=== PATIENT | male | born 1950 | race Caucasian/White ===

== ENCOUNTER 2018-09-22 09:25 | Emergency (ER) | payer MEDICARE ==
[~2018-09-22] VITALS: Ht 172.7 cm; Wt 80.0 kg
[~2018-09-22 09:25] MED LIST: AMOXICILLIN500 MG PO; BAYER ASA325 MG PO; HYDROCHLORO25 MG/TAB PO; LORTAB 5 OR; MECLIZINE25 MG PO; NAPROSYN500 MG PO; NO HOME MEDS; TESTIM1 % TD; ULTRAM50 M1 PO; ZOFRAN ODT8 MG PO
[2018-09-22] MEDS ORDERED: AMOXICILLIN500 MG PO (09:55)
[2018-09-22 10:12] LABS: HEMATOCRIT 43.5 % (39.0-50.0); IMMATURE GRANULOCYTES 0.7 % (0.0-5.0); MEAN CORPUSCULAR HGB 27.9 pG CALC (26.0-32.0); MEAN CORPUSCULAR HGB CONC 34.5 g/L CALC (32.0-36.0); NEUT# 5.21 thou/uL (1.82-7.42); RED BLOOD COUNT 5.37 mill/uL (4.70-6.10); RED CELL DISTRI WIDTH 12.4 % (11.5-15.5)
[2018-09-22 10:24] LABS: GFR > 60 ML/MIN (>=60 (CALC)); GFR FOR AFR.AMER. > 60 ML/MIN (>=60 (CALC))
[2018-09-22 10:25] LABS: ANION GAP 12 (6-22 (CALC)); BUN 16 mg/dL (8-23); BUN/CREATININE RATIO 20 (12-20 (CALC)); CARBON DIOXIDE 28 mmol/l (22-30); CHLORIDE 107 mmol/l (95-108); CREATININE 0.8 mg/dL (0.7-1.3); GFR > 60 ML/MIN (>=60 (CALC)); GFR FOR AFR.AMER. > 60 ML/MIN (>=60 (CALC)); POTASSIUM 4.2 mmol/l (3.5-5.1); SODIUM 142 mmol/l (137-146)
[2018-09-22 13:14] VITALS: BP 161/69
== END 2018-09-22 13:20 | disposition home or self-care (01) ==
LOC: ED 09:25
PROVIDERS: Family Medicine
DX: G62.9 Polyneuropathy, unspecified (principal); R53.1 Weakness; R42 Dizziness and giddiness
CPT/HCPCS: Q9967

== ENCOUNTER 2019-02-20 09:51 | Emergency (ER) | payer MEDICARE ==
[~2019-02-20] VITALS: Ht 172.7 cm; Wt 85.0 kg
[2019-02-20 10:14] LABS: HEMATOCRIT 46.4 % (39.0-50.0); HEMOGLOBIN 16.4 g/dl (14.0-18.0); IMMATURE GRANULOCYTES 0.3 % (0.0-5.0); MEAN CELL VOLUME 79.9 fL CALC (80.0-100.0); MEAN CORPUSCULAR HGB 28.2 pG CALC (26.0-32.0); MEAN CORPUSCULAR HGB CONC 35.3 g/L CALC (32.0-36.0); NEUT# 4.72 thou/uL (1.82-7.42); RED BLOOD COUNT 5.81 mill/uL (4.70-6.10); RED CELL DISTRI WIDTH 12.8 % (11.5-15.5)
[2019-02-20 10:24] LABS: ALKALINE PHOSPHATASE 88 u/l (38-126); ANION GAP 16 (6-22 (CALC)); BILIRUBIN, TOTAL 0.7 mg/dL (0.0-1.4); BUN 18 mg/dL (8-23); BUN/CREATININE RATIO 17 (12-20 (CALC)); CARBON DIOXIDE 27 mmol/l (22-30); CHLORIDE 105 mmol/l (95-108); CREATININE 1.1 mg/dL (0.7-1.3); GFR > 60 ML/MIN (>=60 (CALC)); GFR FOR AFR.AMER. > 60 ML/MIN (>=60 (CALC)); LIPASE 207 u/l (23-300); POTASSIUM 3.9 mmol/l (3.5-5.1); SGOT/AST 31 u/l (19-48); SODIUM 144 mmol/l (137-146); TOTAL PROTEIN 8.4 g/dL (6.3-8.2)
[2019-02-20] MEDS ORDERED: ONDANSETRON4 MG PO (11:14)
[2019-02-20] MEDS ORDERED: TAMSULOSIN0.4 MG PO (11:14)
[2019-02-20] MEDS ORDERED: TRAMADOL HYDROC50 MG PO (11:14)
[2019-02-20 11:32] LABS: URINE BILIRUBIN - DIPSTICK NEGATIVE (NEGATIVE); URINE BLOOD DIPSTICK LARGE (NEGATIVE); URINE COLOR DK. YELLOW; URINE GLUCOSE - DIPSTICK NEGATIVE (NEGATIVE); URINE KETONE NEGATIVE (NEGATIVE); URINE LEUK ESTERASE NEGATIVE (NEGATIVE); URINE NITRITE - DIPSTICK NEGATIVE (Negative); URINE PROTEIN - DIPSTICK TRACE mg/dL (NEG-TRACE)
[2019-02-20 11:33] LABS: URINE EPITHELIAL CELLS FEW EPI/hpf (0-FEW)
[2019-02-20 11:51] VITALS: BP 216/114
== END 2019-02-20 11:51 | disposition home or self-care (01) ==
LOC: ED 09:51
PROVIDERS: Family Medicine
DX: N20.2 Calculus of kidney with calculus of ureter (principal); K66.8 Other specified disorders of peritoneum

== ENCOUNTER 2019-09-29 21:25 | Emergency (ER) | payer MEDICARE ==
[~2019-09-29 21:25] MED LIST changes: +ONDANSETRON4 MG PO; +TAMSULOSIN0.4 MG PO; +TRAMADOL HYDROC50 MG PO
[2019-09-29 22:11] LABS: URINE BILIRUBIN - DIPSTICK NEGATIVE (NEGATIVE); URINE BLOOD DIPSTICK MODERATE (NEGATIVE); URINE COLOR YELLOW; URINE GLUCOSE - DIPSTICK NEGATIVE (NEGATIVE); URINE KETONE NEGATIVE (NEGATIVE); URINE LEUK ESTERASE NEGATIVE (NEGATIVE); URINE NITRITE - DIPSTICK NEGATIVE (Negative); URINE PROTEIN - DIPSTICK 30 mg/dL (NEG-TRACE); URINE SPECIFIC GRAVITY >=1.030; URINE UROBILINOGEN - DIPSTICK 0.2 E.U./dL (0.2)
[2019-09-29 22:12] LABS: HEMATOCRIT 44.1 % (39.0-50.0); HEMOGLOBIN 15.5 g/dl (14.0-18.0); IMMATURE GRANULOCYTES 0.4 % (0.0-5.0); MEAN CELL VOLUME 80.3 fL CALC (80.0-100.0); MEAN CORPUSCULAR HGB 28.2 pG CALC (26.0-32.0); MEAN CORPUSCULAR HGB CONC 35.1 g/dL CAL (32.0-36.0); NEUT# 4.93 thou/uL (1.82-7.42); RED BLOOD COUNT 5.49 mill/uL (4.70-6.10); RED CELL DISTRI WIDTH 13.2 % (11.5-15.5)
[2019-09-29 22:24] LABS: URINE MUCUS FEW hpf (NONE-FEW); URINE SQUAMOUS EPITHELIAL CELL FEW EPI/hpf (0-FEW)
[2019-09-29 22:30] LABS: ALBUMIN 4.7 g/dL (3.2-5.0); ALKALINE PHOSPHATASE 71 u/l (38-126); AMYLASE 62 u/l (30-110); ANION GAP 13 (6-22 (CALC)); BUN 20 mg/dL (8-23); BUN/CREATININE RATIO 18 (12-20 (CALC)); CARBON DIOXIDE 27 mmol/l (22-30); CHLORIDE 107 mmol/l (95-108); CREATININE 1.1 mg/dL (0.7-1.3); GFR > 60 ML/MIN (>=60 (CALC)); GFR FOR AFR.AMER. > 60 ML/MIN (>=60 (CALC)); LIPASE 178 u/l (23-300); POTASSIUM 4.2 mmol/l (3.5-5.1); SGOT/AST 29 u/l (19-48); SODIUM 142 mmol/l (137-146); TOTAL PROTEIN 7.9 g/dL (6.3-8.2)
[2019-09-29 22:35] LABS: BILIRUBIN, TOTAL 1.1 mg/dL (0.0-1.4)
[2019-09-29 23:01] LABS: TSH, 3RD GENERATION 8.69 uIU/mL (0.47 - 4.68)
[2019-09-29] MEDS ORDERED: TRAMADOL HCL50 MG PO (23:21)
[2019-09-29 23:25] VITALS: BP 173/83
== END 2019-09-29 23:40 | disposition home or self-care (01) ==
LOC: ED 21:25
PROVIDERS: Family Medicine
DX: N21.0 Calculus in bladder (principal); R59.0 Localized enlarged lymph nodes; G62.9 Polyneuropathy, unspecified; Z87.442 Personal history of urinary calculi

== ENCOUNTER 2019-11-03 07:18 | Day surgery (SDC) | payer MEDICARE ==
[~2019-11-03] VITALS: Ht 175.3 cm; Wt 87.5 kg
[~2019-11-03 07:18] MED LIST changes: +TRAMADOL HCL50 MG PO
[2019-11-03] MEDS ORDERED: ASPIRIN81 MG PO (07:46)
[2019-11-03 12:46] VITALS: BP 167/85
== END 2019-11-03 13:19 | disposition home or self-care (01) ==
LOC: ORM 07:18
PROVIDERS: ATTEND Urology
PROC: 0VB08ZZ Excision of Prostate, Via Natural or Artificial Opening Endoscopic (ICD-10-PCS; principal; 2019-11-03)
PROC: 0TCB8ZZ Extirpation of Matter from Bladder, Via Natural or Artificial Opening Endoscopic (ICD-10-PCS; 2019-11-03)
DX: N40.1 Benign prostatic hyperplasia with lower urinary tract symptoms (principal); R39.12 Poor urinary stream; N13.8 Other obstructive and reflux uropathy; N21.0 Calculus in bladder; Z11.59 Encounter for screening for other viral diseases

== ENCOUNTER 2020-01-28 15:15 | Observation (INO) | payer MEDICARE ==
[~2020-01-28] VITALS: Ht 175.3 cm; Wt 86.2 kg
[~2020-01-28 15:15] MED LIST changes: +ASPIRIN81 MG PO
--- NOTE | 2020-01-28 16:10 | NUR ---
PT ASSESSED. CHANGED TO GOWN. MONITORS APPLIED. PT REPORTS CHEST TIGHTNESS THIS MORNING AFTER CLIMBING STAIRS. FEELING RESOLVED WITH REST. PT HAS NO CHEST PAIN AT PRESENT BUT FEELS LIKE HE CANNOT TAKE A FULL BREATH. AO X 3. SKIN PINK WARM AND DRY.
[2020-01-28 16:44] LABS: HEMATOCRIT 45.6 % (39.0-50.0); HEMOGLOBIN 15.7 g/dl (14.0-18.0); IMMATURE GRANULOCYTES 0.2 % (0.0-5.0); MEAN CORPUSCULAR HGB 27.9 pG CALC (26.0-32.0); MEAN CORPUSCULAR HGB CONC 34.4 g/dL CAL (32.0-36.0); NEUT# 4.16 thou/uL (1.82-7.42); RED BLOOD COUNT 5.63 mill/uL (4.70-6.10); RED CELL DISTRI WIDTH 13.2 % (11.5-15.5)
[2020-01-28 16:58] LABS: ALBUMIN 4.8 g/dL (3.2-5.0); ALKALINE PHOSPHATASE 85 u/l (38-126); ANION GAP 14 (6-22 (CALC)); BILIRUBIN, TOTAL 0.8 mg/dL (0.0-1.4); BUN 14 mg/dL (8-23); BUN/CREATININE RATIO 16 (12-20 (CALC)); CARBON DIOXIDE 25 mmol/l (22-30); CHLORIDE 106 mmol/l (95-108); CREATININE 0.9 mg/dL (0.7-1.3); GFR > 60 ML/MIN (>=60 (CALC)); GFR FOR AFR.AMER. > 60 ML/MIN (>=60 (CALC)); POTASSIUM 4.3 mmol/l (3.5-5.1); SGOT/AST 32 u/l (19-48); SODIUM 142 mmol/l (137-146); TOTAL PROTEIN 8.2 g/dL (6.3-8.2)
--- NOTE | 2020-01-28 17:23 | NUR ---
SBAR PRINTED TO FLOOR
--- NOTE | 2020-01-28 17:37 | NUR ---
PT RESTING ON STRETCHER. NO COMPLAINTS OF CHEST DISCOMFORT AT THIS TIME
--- NOTE | 2020-01-28 18:10 | NUR ---
PT RESTING COMFORTABLY AWAITING ADMISSION ORDERS
--- NOTE | 2020-01-28 18:16 | NUR ---
REPORT GIVEN TO [facility]
--- NOTE | 2020-01-28 18:20 | NUR ---
PT TRANSPORTED VIA STRETCHER TELEMETRY IN PLACE TO [facility]
--- NOTE | 2020-01-28 18:38 | NUR ---
REPORT RECEIVED FROM JUSTIN IN ED, PT ARRIVED ON UNIT @ 1823 TRANSPORTED VIA STRETCHER AND AMBULATED TO BED. ALERT AND ORIENTED TIMES 4, NO C/O DISCOMFORT AT THIS TIME, TELE MONITOR IN PLACE, ORIENTED TO ROOM AND CALL GLASS AND SETTLED IN ROOM.
--- NOTE | 2020-01-28 19:20 | NUR ---
REPORT FROM [facility]. PT NOTED SITTING UP AT SIDE OF BED. ALERT AND ORIENTED X4. NO APPARENT DISTRESS NOTED. RESPIRATIONS EVEN AND UNLABORED. PT DENIES ANY PAIN OR SOB AT THIS TIME. FISHER EEL IN PLACE. IV SITE APPEARS HEALTHY. DISCUSSED POC. PT VERBALIZED UNDERSTANDING. NO CURRENT WANTS OR NEEDS. CALL LIGHT WITHIN REACH. WILL CONTINUE TO MONITOR.
[2020-01-28 19:24] VITALS: BP 171/84
[2020-01-28] MEDS ORDERED: ASPIRIN 81 LOW81 MG PO (19:35)
--- NOTE | 2020-01-28 19:43 | NUR ---
PT REQUEST SHOWER. LINENS PROVIDED AND IV SITE SECURED. WILL CONTINUE TO MONITOR.
--- NOTE | 2020-01-28 21:00 | NUR ---
PT OUT OF SHOWER. METALLURGICAL TESTER REAPPLIED. MEDICATED ORDERED. ASSESSMENT COMPLETED. NO APPARENT DISTRESS NOTED. CALL LIGHT WITHIN REACH. WILL CONTINUE TO MONITOR.
[2020-01-29 00:10] VITALS: BP 128/69
--- NOTE | 2020-01-29 01:18 | NUR ---
PT RESTING IN BED WITH EYES CLOSED. NO APPARENT DISTRESS NOTED. CALL LIGHT WITHIN REACH. WILL CONTINUE TO MONITOR.
[2020-01-29 04:59] VITALS: BP 135/74
--- NOTE | 2020-01-29 04:59 | NUR ---
PT RESTING IN BED. NO APPARENT DISTRESS NOTED. PT WAKES EASILY. DENIES ANY PAIN OR DISCOMFORT. CALL LIGHT WITHIN REACH. WILL CONTINUE TO MONITOR.
[2020-01-29 06:44] LABS: CHOLESTEROL HDL RATIO 8.3 (<4.4 (CALC)); MAGNESIUM 1.8 mg/dL (1.6-2.3)
--- NOTE | 2020-01-29 06:44 | NUR ---
PT APPROACHED NURSES DRESSED IN CLOTHES FROM HOME. PT STATES HE NEEDS TO LEAVE THAT HE HAS TO BE AT WORK AT 8. DISCUSSED LEAVING AMA AND MEDICAL RISK. PT SIGNED AMA PAPER. IV DISCONTINUED. CUTTER FINISHER PHYSICIAN AND PACKAGING ASSEMBLER NOTIFIED AT THIS TIME.
== END 2020-01-29 06:50 | disposition left against medical advice (07) ==
LOC: ED 15:15 → ED-I 17:13 → ED 17:26 → MS2 17:27
PROVIDERS: Family Medicine; Nurse Practitioner; ADMIT Internal Medicine; ATTEND Internal Medicine
DX: R07.9 Chest pain, unspecified (principal); R20.0 Anesthesia of skin; R53.1 Weakness; R06.02 Shortness of breath; R05 Cough; Z20.828 Contact with and (suspected) exposure to other viral communicable diseases
CPT/HCPCS: G0378

== ENCOUNTER 2020-03-10 12:20 | Emergency (ER) | payer MEDICARE ==
[~2020-03-10] VITALS: Ht 175.3 cm; Wt 87.7 kg
[~2020-03-10 12:20] MED LIST changes: +ASPIRIN 81 LOW81 MG PO
[2020-03-10 12:36] LABS: HEMATOCRIT 46.8 % (39.0-50.0); IMMATURE GRANULOCYTES 0.2 % (0.0-5.0); MEAN CELL VOLUME 81.1 fL CALC (80.0-100.0); MEAN CORPUSCULAR HGB 27.7 pG CALC (26.0-32.0); MEAN CORPUSCULAR HGB CONC 34.2 g/dL CAL (32.0-36.0); NEUT# 7.52 thou/uL (1.82-7.42); RED BLOOD COUNT 5.77 mill/uL (4.70-6.10); RED CELL DISTRI WIDTH 13.2 % (11.5-15.5)
[2020-03-10 13:04] LABS: ALBUMIN 4.8 g/dL (3.2-5.0); ALKALINE PHOSPHATASE 101 u/l (38-126); AMYLASE 70 u/l (30-110); ANION GAP 17 (6-22 (CALC)); BUN 16 mg/dL (8-23); BUN/CREATININE RATIO 15 (12-20 (CALC)); CARBON DIOXIDE 26 mmol/l (22-30); CHLORIDE 106 mmol/l (95-108); CREATININE 1.1 mg/dL (0.7-1.3); GFR > 60 ML/MIN (>=60 (CALC)); GFR FOR AFR.AMER. > 60 ML/MIN (>=60 (CALC)); LIPASE 158 u/l (23-300); POTASSIUM 3.8 mmol/l (3.5-5.1); SGOT/AST 44 u/l (19-48); SODIUM 145 mmol/l (137-146); TOTAL PROTEIN 8.4 g/dL (6.3-8.2)
[2020-03-10 13:05] LABS: ACT PARTIAL THROMBO TIME 24.2 SECONDS (20.0-32.5); INTERNATIONAL NORMALIZED RATIO 1.2 RATIO (0.7-1.3); PROTHROMBIN TIME 11.5 SECONDS (9.0-12.5)
[2020-03-10 13:10] LABS: BILIRUBIN, TOTAL 1.6 mg/dL (0.0-1.4)
[2020-03-10 13:13] VITALS: BP 184/103
== END 2020-03-10 13:22 | disposition short-term general hospital (02) ==
LOC: ED 12:20
DX: I21.3 ST elevation (STEMI) myocardial infarction of unspecified site (principal)
CPT/HCPCS: J1644

== ENCOUNTER 2020-09-28 20:47 | Emergency (ER) | payer MEDICARE ==
[~2020-09-28] VITALS: Ht 30.5 cm; Wt 87.7 kg
[2020-09-28 21:42] LABS: IMMATURE GRANULOCYTES 0.3 % (0.0-5.0); MEAN CELL VOLUME 83.5 fL CALC (80.0-100.0); MEAN CORPUSCULAR HGB 29.4 pG CALC (26.0-32.0); MEAN CORPUSCULAR HGB CONC 35.2 g/dL CAL (32.0-36.0); NEUT# 4.26 thou/uL (1.82-7.42); RED BLOOD COUNT 4.49 mill/uL (4.70-6.10); RED CELL DISTRI WIDTH 13.2 % (11.5-15.5)
[2020-09-28 21:43] LABS: HEMATOCRIT 37.5 % (39.0-50.0); HEMOGLOBIN 13.2 g/dl (14.0-18.0)
[2020-09-28 21:46] LABS: URINE BILIRUBIN - DIPSTICK NEGATIVE (NEGATIVE); URINE BLOOD DIPSTICK LARGE (NEGATIVE); URINE COLOR BROWN; URINE GLUCOSE - DIPSTICK NEGATIVE (NEGATIVE); URINE KETONE NEGATIVE (NEGATIVE); URINE LEUK ESTERASE NEGATIVE (NEGATIVE); URINE PROTEIN - DIPSTICK 100 mg/dL (NEG-TRACE); URINE SPECIFIC GRAVITY >=1.030; URINE UROBILINOGEN - DIPSTICK 0.2 E.U./dL (0.2)
[2020-09-28] MEDS ORDERED: BRILINTA90 MG PO (21:46)
[2020-09-28] MEDS ORDERED: LISINOPRIL10 MG PO (21:48)
[2020-09-28] MEDS ORDERED: SPIRONOLACT25 MG PO (21:49)
[2020-09-28] MEDS ORDERED: METOPROLOL100 M1 PO (21:50)
[2020-09-28 21:51] LABS: URINE NITRITE - DIPSTICK NEGATIVE (Negative)
[2020-09-28] MEDS ORDERED: ATORVASTATIN CA80 MG PO (21:51)
[2020-09-28 21:52] LABS: URINE BACTERIA MANY hpf; URINE RBC 50-100 RBC/hpf (0-5); URINE SQUAMOUS EPITHELIAL CELL FEW EPI/hpf (0-FEW)
[2020-09-28 21:55] LABS: ALBUMIN 4.2 g/dL (3.2-5.0); ALKALINE PHOSPHATASE 70 u/l (38-126); ANION GAP 13 (6-22 (CALC)); BUN 24 mg/dL (8-23); BUN/CREATININE RATIO 20 (12-20 (CALC)); CARBON DIOXIDE 25 mmol/l (22-30); CHLORIDE 104 mmol/l (95-108); CREATININE 1.2 mg/dL (0.7-1.3); GFR 60 ML/MIN (>=60 (CALC)); GFR FOR AFR.AMER. > 60 ML/MIN (>=60 (CALC)); POTASSIUM 4.3 mmol/l (3.5-5.1); SGOT/AST 32 u/l (19-48); SODIUM 138 mmol/l (137-146); TOTAL PROTEIN 7.8 g/dL (6.3-8.2)
[2020-09-28 22:03] LABS: BILIRUBIN, TOTAL 0.6 mg/dL (0.0-1.4)
[2020-09-28 22:04] LABS: ACT PARTIAL THROMBO TIME 22.5 SECONDS (20.0-32.5); INTERNATIONAL NORMALIZED RATIO 1.1 RATIO (0.7-1.3); PROTHROMBIN TIME 11.1 SECONDS (9.0-12.5)
[2020-09-28] MEDS ORDERED: BACTRIM DS1 TAB PO (23:10)
[2020-09-28 23:26] VITALS: BP 130/65
== END 2020-09-28 23:36 | disposition home or self-care (01) ==
LOC: ED 20:47
PROVIDERS: Family Medicine
DX: R31.9 Hematuria, unspecified (principal); R59.0 Localized enlarged lymph nodes; Z86.73 Personal history of transient ischemic attack (TIA), and cerebral infarction without residual deficits; Z87.442 Personal history of urinary calculi
CPT/HCPCS: Q9967

== ENCOUNTER 2020-11-21 11:23 | Emergency (ER) | payer MEDICARE ==
[~2020-11-21] VITALS: Ht 175.3 cm; Wt 92.0 kg
[~2020-11-21 11:23] MED LIST changes: +ATORVASTATIN CA80 MG PO; +BACTRIM DS1 TAB PO; +BRILINTA90 MG PO; +LISINOPRIL10 MG PO; +METOPROLOL100 M1 PO; +SPIRONOLACT25 MG PO
[2020-11-21 12:31] LABS: HEMATOCRIT 40.9 % (39.0-50.0); HEMOGLOBIN 14.5 g/dl (14.0-18.0); IMMATURE GRANULOCYTES 0.3 % (0.0-5.0); MEAN CORPUSCULAR HGB 29.4 pG CALC (26.0-32.0); MEAN CORPUSCULAR HGB CONC 35.5 g/dL CAL (32.0-36.0); NEUT# 4.85 thou/uL (1.82-7.42); RED BLOOD COUNT 4.93 mill/uL (4.70-6.10); RED CELL DISTRI WIDTH 12.7 % (11.5-15.5)
[2020-11-21 12:50] LABS: ALBUMIN 4.4 g/dL (3.2-5.0); ALKALINE PHOSPHATASE 69 u/l (38-126); ANION GAP 16 (6-22 (CALC)); BILIRUBIN, TOTAL 0.7 mg/dL (0.0-1.4); BUN 25 mg/dL (8-23); BUN/CREATININE RATIO 20 (12-20 (CALC)); CHLORIDE 109 mmol/l (95-108); CREATININE 1.2 mg/dL (0.7-1.3); GFR 60 ML/MIN (>=60 (CALC)); GFR FOR AFR.AMER. > 60 ML/MIN (>=60 (CALC)); POTASSIUM 4.4 mmol/l (3.5-5.1); SGOT/AST 33 u/l (19-48); SODIUM 140 mmol/l (137-146); TOTAL PROTEIN 8.2 g/dL (6.3-8.2)
[2020-11-21 12:56] LABS: CARBON DIOXIDE 19 mmol/l (22-30)
[2020-11-21 15:23] LABS: URINE BILIRUBIN - DIPSTICK NEGATIVE (NEGATIVE); URINE BLOOD DIPSTICK LARGE (NEGATIVE); URINE GLUCOSE - DIPSTICK NEGATIVE (NEGATIVE); URINE KETONE NEGATIVE (NEGATIVE); URINE LEUK ESTERASE NEGATIVE (NEGATIVE); URINE PROTEIN - DIPSTICK 30 mg/dL (NEG-TRACE); URINE SPECIFIC GRAVITY >=1.030; URINE UROBILINOGEN - DIPSTICK 0.2 E.U./dL (0.2)
[2020-11-21 15:28] LABS: URINE COLOR AMBER; URINE NITRITE - DIPSTICK NEGATIVE (Negative)
[2020-11-21 15:35] LABS: URINE AMORPH SEDIMENT FEW hpf (NONE-FER); URINE MUCUS FEW hpf (NONE-FEW); URINE RBC 50-100 RBC/hpf (0-5)
[2020-11-21 16:29] VITALS: BP 149/74
[2020-11-21] MEDS ORDERED: TORADOL PO (16:31)
[2020-11-21] MEDS ORDERED: ZOFRAN4 MG/TAB PO (16:31)
[2020-11-21] MEDS ORDERED: TAMSULOSIN0.4 MG PO (16:31)
== END 2020-11-21 16:34 | disposition home or self-care (01) ==
LOC: ED 11:23
PROVIDERS: Emergency Medicine
DX: N20.0 Calculus of kidney (principal); I25.2 Old myocardial infarction; Z87.442 Personal history of urinary calculi; Z86.73 Personal history of transient ischemic attack (TIA), and cerebral infarction without residual deficits; Z95.5 Presence of coronary angioplasty implant and graft

== ENCOUNTER 2020-12-07 11:25 | Observation (INO) | payer MEDICARE ==
[~2020-12-07] VITALS: Ht 175.3 cm; Wt 92.3 kg
[~2020-12-07 11:25] MED LIST changes: +TORADOL PO; +ZOFRAN4 MG/TAB PO
[2020-12-07 12:36] LABS: HEMATOCRIT 38.9 % (39.0-50.0); HEMOGLOBIN 12.9 g/dl (14.0-18.0); MEAN CORPUSCULAR HGB 29.3 pG CALC (26.0-32.0); MEAN CORPUSCULAR HGB CONC 33.2 g/dL CAL (32.0-36.0); NEUT# 4.01 thou/uL (1.82-7.42); RED BLOOD COUNT 4.41 mill/uL (4.70-6.10)
[2020-12-07 12:54] LABS: ALBUMIN 4.4 g/dL (3.2-5.0); ALKALINE PHOSPHATASE 75 u/l (38-126); ANION GAP 18 (6-22 (CALC)); BILIRUBIN, TOTAL 0.9 mg/dL (0.0-1.4); BUN 35 mg/dL (8-23); BUN/CREATININE RATIO 18 (12-20 (CALC)); CARBON DIOXIDE 19 mmol/l (22-30); CHLORIDE 108 mmol/l (95-108); D-DIMER 1.03 mg/L (0.19-0.60); GFR 33 ML/MIN (>=60 (CALC)); GFR FOR AFR.AMER. 40 ML/MIN (>=60 (CALC)); LIPASE 309 u/l (23-300); POTASSIUM 5.1 mmol/l (3.5-5.1); SGOT/AST 50 u/l (19-48); SODIUM 139 mmol/l (137-146); TOTAL PROTEIN 8.3 g/dL (6.3-8.2)
[2020-12-07 12:58] LABS: ACT PARTIAL THROMBO TIME 25.3 SECONDS (20.0-32.5); INTERNATIONAL NORMALIZED RATIO 1.1 RATIO (0.7-1.3); PROTHROMBIN TIME 11.5 SECONDS (9.0-12.5)
[2020-12-07 13:00] LABS: MEAN CELL VOLUME 88.2 fL CALC (80.0-100.0)
[2020-12-07 13:03] LABS: URINE BLOOD DIPSTICK LARGE (NEGATIVE); URINE GLUCOSE - DIPSTICK NEGATIVE (NEGATIVE); URINE KETONE NEGATIVE (NEGATIVE); URINE LEUK ESTERASE NEGATIVE (NEGATIVE); URINE PH 5.5 (4.5-8.0); URINE PROTEIN - DIPSTICK 30 mg/dL (NEG-TRACE); URINE SPECIFIC GRAVITY >=1.030; URINE UROBILINOGEN - DIPSTICK 0.2 E.U./dL (0.2)
[2020-12-07 13:05] LABS: URINE BILIRUBIN - DIPSTICK SMALL (NEGATIVE)
[2020-12-07 13:06] LABS: URINE COLOR DK. YELLOW; URINE NITRITE - DIPSTICK NEGATIVE (Negative)
[2020-12-07 13:08] LABS: URINE HYALINE CAST FEW lpf (NONE-RARE); URINE SQUAMOUS EPITHELIAL CELL RARE EPI/hpf (0-FEW)
[2020-12-07 19:11] VITALS: BP 104/61
[2020-12-07 23:46] VITALS: BP 99/51
[2020-12-08 04:18] VITALS: BP 118/58
[2020-12-08 05:49] LABS: HEMATOCRIT 36.3 % (39.0-50.0); HEMOGLOBIN 12.1 g/dl (14.0-18.0); IMMATURE GRANULOCYTES 0.3 % (0.0-5.0); MEAN CORPUSCULAR HGB 29.7 pG CALC (26.0-32.0); MEAN CORPUSCULAR HGB CONC 33.3 g/dL CAL (32.0-36.0); NEUT# 2.84 thou/uL (1.82-7.42); RED BLOOD COUNT 4.08 mill/uL (4.70-6.10); RED CELL DISTRI WIDTH 12.9 % (11.5-15.5)
[2020-12-08 06:03] LABS: C-REACTIVE PROTEIN 1.4 mg/dL (0-0.9)
[2020-12-08 06:07] LABS: ALBUMIN 3.8 g/dL (3.2-5.0); CREATININE 1.6 mg/dL (0.7-1.3); POTASSIUM 4.9 mmol/l (3.5-5.1); TOTAL PROTEIN 6.9 g/dL (6.3-8.2)
[2020-12-08 06:10] LABS: BILIRUBIN, TOTAL 0.4 mg/dL (0.0-1.4)
[2020-12-08 07:47] VITALS: BP 116/61
[2020-12-08 10:30] VITALS: BP 114/57
[2020-12-08] MEDS ORDERED: DEXAMETHASON6 MG PO (12:52)
[2020-12-08] MEDS ORDERED: AZITHROMYCIN500 MG PO (12:53)
== END 2020-12-08 14:45 | disposition home or self-care (01) ==
LOC: ED 11:25 → ED-I 14:43 → ED 15:00 → MS2 15:01
PROVIDERS: ADMIT Internal Medicine; ATTEND Internal Medicine
DX: U07.1 COVID-19 (principal); J12.82 Pneumonia due to coronavirus disease 2019; N17.9 Acute kidney failure, unspecified; E86.0 Dehydration; I25.2 Old myocardial infarction; R41.3 Other amnesia; R45.83 Excessive crying of child, adolescent or adult; Z86.73 Personal history of transient ischemic attack (TIA), and cerebral infarction without residual deficits; Z87.442 Personal history of urinary calculi; Z95.5 Presence of coronary angioplasty implant and graft
CPT/HCPCS: G0378

== ENCOUNTER 2020-12-16 06:58 | Inpatient (IN) | payer MEDICARE ==
[2020-12-16] VITALS (11 sets, daily range): BP systolic 106–139; BP diastolic 54–90
[~2020-12-16] VITALS: Ht 175.3 cm; Wt 95.0 kg
[~2020-12-16 06:58] MED LIST changes: +AZITHROMYCIN500 MG PO; +DEXAMETHASON6 MG PO
--- NOTE | 2020-12-16 07:00 | NUR ---
PT TO ROOM VIA WC
[2020-12-16 07:42] LABS: HEMATOCRIT 41.2 % (39.0-50.0); IMMATURE GRANULOCYTES 0.9 % (0.0-5.0); MEAN CELL VOLUME 86.2 fL CALC (80.0-100.0); MEAN CORPUSCULAR HGB 29.5 pG CALC (26.0-32.0); MEAN CORPUSCULAR HGB CONC 34.2 g/dL CAL (32.0-36.0); NEUT# 12.17 thou/uL (1.82-7.42); RED BLOOD COUNT 4.78 mill/uL (4.70-6.10); RED CELL DISTRI WIDTH 12.6 % (11.5-15.5)
[2020-12-16 07:44] LABS: HEMOGLOBIN 14.1 g/dl (14.0-18.0)
[2020-12-16 07:58] LABS: ALBUMIN 3.6 g/dL (3.2-5.0); ALKALINE PHOSPHATASE 90 u/l (38-126); ANION GAP 18 (6-22 (CALC)); BUN 52 mg/dL (8-23); BUN/CREATININE RATIO 32 (12-20 (CALC)); C-REACTIVE PROTEIN 8.9 mg/dL (0-0.9); CARBON DIOXIDE 19 mmol/l (22-30); CHLORIDE 105 mmol/l (95-108); CREATININE 1.6 mg/dL (0.7-1.3); GFR 43 ML/MIN (>=60 (CALC)); GFR FOR AFR.AMER. 52 ML/MIN (>=60 (CALC)); LIPASE 267 u/l (23-300); SGOT/AST 37 u/l (19-48); SODIUM 138 mmol/l (137-146); TOTAL PROTEIN 7.2 g/dL (6.3-8.2)
[2020-12-16 08:00] LABS: BILIRUBIN, TOTAL 1.4 mg/dL (0.0-1.4)
--- NOTE | 2020-12-16 08:00 | NUR ---
PT TO RADIOLOGY
[2020-12-16 08:07] LABS: D-DIMER 4.24 mg/L (0.19-0.60)
[2020-12-16 08:10] LABS: INTERNATIONAL NORMALIZED RATIO 1.2 RATIO (0.7-1.3); PROTHROMBIN TIME 12.3 SECONDS (9.0-12.5)
--- NOTE | 2020-12-16 08:59 | NUR ---
PT RESTING ON STRETCHER; NO S/S OF DISTRESS NOTED
--- NOTE | 2020-12-16 10:00 | NUR ---
DR NICOLE AT BEDSIDE TO DISCUSS PLAN TO ADMIT
--- NOTE | 2020-12-16 10:45 | NUR ---
Admission Note Report Given to: GURVINDER MORENO Transported by: Wheelchair X Stretcher Transported with: X Nurse Transporter X Patent IV X O2 X Storekeeper Engineering Location: X ICU MS2
--- NOTE | 2020-12-16 10:50 | NUR ---
PT ARRIVES TO ICU ROOM 7 VIA ER STRETCHER ACCOMPANIED BY ER NURSE. PT ABLE TO AMBULATE TO BED WITH STEADY GAIT. PT IS ALERT AND ORIENTED X3. ADMISSION ASSESSMENT COMPLETED AT THIS TIME. IV PATENT X1. PT O2 SATS ARE 69% AFTER TRANSFERRING PATIENT TO BED. INCREASED OXYGEN TO 10LITERS FROM 6LITERS. OXYGENS REMAINS 75-83%. INCREASED OXYGEN TO 15L. OXYGEN REMAINED 85%. RT NOTIFIED AND CAME TO ASSESS PATIENT. RT REPORTED THAT PATIENT WAS SLOW TO RECOVER O2 IN ER WELL. PT DENIES FEELING SHORT OF BREATH AT THIS TIME. ORIENTED PT TO ROOM, UNIT AND CALL LIGHT SYSTEM. WILL CONTINUE TO MONITOR AND REGULATE OXYGEN THERAPY.
--- NOTE | 2020-12-16 11:57 | NUR ---
DR MARIA AT BEDSIDE AT THIS TIME.
--- NOTE | 2020-12-16 12:41 | NUR ---
O2 DECREASED TO 12L AT THIS TIME.
--- NOTE | 2020-12-16 13:02 | NUR ---
PT IS ON 12l HFNC SAT 97%
--- NOTE | 2020-12-16 14:00 | NUR ---
PT DESATS TO 84%. O2 INCREASED TO 15L NASAL CANNULA. SATS INCREASED TO 93%. CALL LIGHT IN REACH. WILL CONTINUE TOMONTIOR
--- NOTE | 2020-12-16 16:08 | NUR ---
PT RESTING IN BED WITH EYES CLOSED. RESP ARE EVEN AND UNLABORED. NO DISTRESS NOTED. CALL LIGHT IN REACH. WILL CONTINUE TO MONITOR.
--- NOTE | 2020-12-16 17:01 | NUR ---
PT IS ON 15L, SAT 90%
--- NOTE | 2020-12-16 18:13 | NUR ---
pt resting on side at this time. sats have improved while resting on side. o2 remains at 15 liters. call light in reach. will continue to monitor.
--- NOTE | 2020-12-16 19:40 | NUR ---
awake. lying in supine position. sao2 78% on 15 l/m nc. instructed pt about prone position & pt complied. after approx 2 min sao2 96%. pt does not want to be intubated. director cardiac shows sinus rhythm hr 60. #18 lac ns infusing @ 100cchr. po fluids taken poor. has not voided @ present. fall & air/contact precautions cont.
--- NOTE | 2020-12-16 22:00 | NUR ---
eyes closed. remains in prone position. cardiac cath rn shows sinus gbay hr 56.
[2020-12-16 22:26] LABS: URINE BILIRUBIN - DIPSTICK NEGATIVE (NEGATIVE); URINE BLOOD DIPSTICK MODERATE (NEGATIVE); URINE COLOR YELLOW; URINE GLUCOSE - DIPSTICK NEGATIVE (NEGATIVE); URINE KETONE NEGATIVE (NEGATIVE); URINE LEUK ESTERASE NEGATIVE (NEGATIVE); URINE PH 5.5 (4.5-8.0); URINE PROTEIN - DIPSTICK TRACE mg/dL (NEG-TRACE); URINE SPECIFIC GRAVITY >=1.030; URINE UROBILINOGEN - DIPSTICK 0.2 E.U./dL (0.2)
[2020-12-16 22:36] LABS: URINE NITRITE - DIPSTICK NEGATIVE (Negative)
[2020-12-16 22:42] LABS: URINE WBC 0-2 WBC/hpf (0-5)
[2020-12-16 22:44] LABS: URINE URIC ACID CRYSTALS MANY lpf
--- NOTE | 2020-12-16 23:40 | NUR ---
sao2 84%. pt lying in supine position. pt declined to prone. rt notified. vapotherm taken into room. pt then proned self. after approx 1 minute sao2 95%.
[2020-12-17] VITALS (11 sets, daily range): BP systolic 99–137; BP diastolic 46–77
--- NOTE | 2020-12-17 05:31 | NUR ---
lab here. blood drawn.
[2020-12-17 06:04] LABS: HEMATOCRIT 38.5 % (39.0-50.0); HEMOGLOBIN 12.8 g/dl (14.0-18.0); IMMATURE GRANULOCYTES 1.1 % (0.0-5.0); MEAN CELL VOLUME 88.5 fL CALC (80.0-100.0); MEAN CORPUSCULAR HGB 29.4 pG CALC (26.0-32.0); MEAN CORPUSCULAR HGB CONC 33.2 g/dL CAL (32.0-36.0); NEUT# 12.22 thou/uL (1.82-7.42); RED BLOOD COUNT 4.35 mill/uL (4.70-6.10); RED CELL DISTRI WIDTH 12.5 % (11.5-15.5)
[2020-12-17 06:26] LABS: ALKALINE PHOSPHATASE 76 u/l (38-126); ANION GAP 13 (6-22 (CALC)); BUN 37 mg/dL (8-23); BUN/CREATININE RATIO 32 (12-20 (CALC)); CARBON DIOXIDE 21 mmol/l (22-30); CHLORIDE 111 mmol/l (95-108); CREATININE 1.2 mg/dL (0.7-1.3); GFR 60 ML/MIN (>=60 (CALC)); GFR FOR AFR.AMER. > 60 ML/MIN (>=60 (CALC)); SGOT/AST 31 u/l (19-48); SODIUM 140 mmol/l (137-146); TOTAL PROTEIN 5.9 g/dL (6.3-8.2)
[2020-12-17 06:30] LABS: ALBUMIN 2.8 g/dL (3.2-5.0); BILIRUBIN, TOTAL 0.6 mg/dL (0.0-1.4)
[2020-12-17 06:42] LABS: C-REACTIVE PROTEIN 12.5 mg/dL (0-0.9)
--- NOTE | 2020-12-17 06:45 | NUR ---
REPORT RECEIVED FROM TL JULIAN. CARE ASSUMED.
--- NOTE | 2020-12-17 07:40 | NUR ---
PT RESTING IN BED AWAKE. PT IS ALERT AND ORIENTED X3. SHIFT ASSESSMENT COMPLETED AT THIS TIME. IV PATENT X1. RT AT BEDSIDE AT THIS TIME. O2 SATS 70S. PT ASSISTED UP TO CHAIR AT THIS TIME. PT DID DESAT TO 60S. RT PLACED PT ON VAPOTHERM. VAPOTHERM SETTINGS 35L 70%. CALL LIGHT IN REACH. WILL CONTINUE TO MONITOR.
--- NOTE | 2020-12-17 09:40 | NUR ---
DR MARIA AT BEDSIDE AT THIS TIME.
--- NOTE | 2020-12-17 10:12 | NUR ---
RADIOLOGY AT BEDSIDE FOR PORTABLE CXR
--- NOTE | 2020-12-17 12:00 | NUR ---
PT SEATED UP IN RECLINER AT THIS TIME. SET UP FOR NOON MEAL. VSS ON MONITOR. CALL LIGHT IN REACH. WILL CONTINUE TO MONITOR.
--- NOTE | 2020-12-17 13:24 | NUR ---
PT ASSISTED BACK TO BED AT THIS TIME. PT LAYING PRONE. O2 SATS TO 100%. O2 DECREASED TO 30L 65%. PT DOES HAVE BETTER COLOR THIS AFTERNOON. RESP ARE EVEN AND UNLABORED. SATS DID NOT DESAT BAD THIS AM. CALL LIGHT IN REACH. VSS ON MONITOR. WILL CONTINUE TO MONITOR.
--- NOTE | 2020-12-17 14:51 | NUR ---
PT RESTING IN PRONE POSITION VAPOTHERM TITRATED TO 25L 60%. O2 SATS REMAIN 97%. CALL LIGHT IN REACH. WILL CONTINUE TO MONITOR
--- NOTE | 2020-12-17 16:18 | NUR ---
PT CONTINUES TO REST IN BED PRONE AT THIS TIME. CALL LIGHT IN REACH. WILL CONTINUE TO MONITOR.
--- NOTE | 2020-12-17 17:45 | NUR ---
PT ASSISTED UP TO RECLINER AT THIS TIME FOR PM MEAL. PT TOLERATED TRANSFER WELL. VAPOTHERM INCREASED BACK UP TO 70% AND 30L. CALL LIGHT IN REACH. WILL CONTINUE TO MONITOR.
--- NOTE | 2020-12-17 19:45 | NUR ---
awake. sitting in recliner. o2 cont 70% 30 l/m vapotherm. cardiac specialist shows sinus rhythm hr 67. #18 lac ns infusing @ 100cchr. po fluids taken well. voids per urinal. fall & air/contact precautions cont.
--- NOTE | 2020-12-17 21:00 | NUR ---
assisted to bed. nixon well.
[2020-12-18] VITALS (15 sets, daily range): BP systolic 105–148; BP diastolic 49–82
--- NOTE | 2020-12-18 00:01 | NUR ---
eyes closed. no distress. case monitor shows sinus gaby hr 50.
--- NOTE | 2020-12-18 02:00 | NUR ---
resting quietly. resps even & unlabored. no apparent distress. ivf infusing well.
--- NOTE | 2020-12-18 02:50 | NUR ---
bed wet. iv out. attempted new iv start x1 without success. up to chair, linen changed then back to bed. pt desats to 64% with activity. instructed to prone. pt complied. o2 sat returned to 96%.
--- NOTE | 2020-12-18 03:15 | NUR ---
IV ATTEMPT X2 PER YESENIA WITHOUT SUCCESS.
--- NOTE | 2020-12-18 04:00 | NUR ---
iv attempt x3 per edilia without success.
--- NOTE | 2020-12-18 04:15 | NUR ---
iv attempt x3 per taras without success.
--- NOTE | 2020-12-18 05:36 | NUR ---
lab here. blood drawn.
[2020-12-18 06:20] LABS: HEMATOCRIT 37.7 % (39.0-50.0); HEMOGLOBIN 12.6 g/dl (14.0-18.0); MEAN CELL VOLUME 87.7 fL CALC (80.0-100.0); MEAN CORPUSCULAR HGB 29.3 pG CALC (26.0-32.0); MEAN CORPUSCULAR HGB CONC 33.4 g/dL CAL (32.0-36.0); RED BLOOD COUNT 4.3 mill/uL (4.70-6.10); RED CELL DISTRI WIDTH 12.7 % (11.5-15.5)
[2020-12-18 06:33] LABS: ALBUMIN 2.9 g/dL (3.2-5.0); ALKALINE PHOSPHATASE 89 u/l (38-126); ANION GAP 14 (6-22 (CALC)); BILIRUBIN, TOTAL 0.7 mg/dL (0.0-1.4); BUN 32 mg/dL (8-23); BUN/CREATININE RATIO 35 (12-20 (CALC)); CARBON DIOXIDE 21 mmol/l (22-30); CHLORIDE 109 mmol/l (95-108); CREATININE 0.9 mg/dL (0.7-1.3); GFR > 60 ML/MIN (>=60 (CALC)); GFR FOR AFR.AMER. > 60 ML/MIN (>=60 (CALC)); POTASSIUM 4.6 mmol/l (3.5-5.1); SGOT/AST 36 u/l (19-48); SODIUM 139 mmol/l (137-146)
--- NOTE | 2020-12-18 10:42 | NUR ---
TLC PLACED TO RT GROIN BY DR NICOLE. PT TOLERATED WELL.
--- NOTE | 2020-12-18 19:53 | NUR ---
PATIENT IS ALERT AND ORIENTED X3. ON VAPOTHERM FIO2 WAS 60%, 30 L/MIN, SPO2 WAS IN THE 80'S. TITRATED FIO2 TO 70% AND ASSISTED PT WITH LAYING PRONE. PATIENT DENIES ANY SOB AT THIS TIME, AND I DID NOT NOTE ANY RESPIRATIRY DISTRESS EITHER. SPO2 LAYING PRONE IS 95% AND ABOVE. R-FEM TRIPLE LUMEN INTACT, FLUSHES PROPERLY AND 2 LUMENS RETURNS BLOOD PROPERLY. STARTED NORMAL SALINE. SR ON TELEMETRY, HR 60'S-70'S, BP WNL, AFEBRILE. NURSE ASSESSMENT PERFORMED. NO EDEMA NOTED, SKIN INTACT. EDUCATED ON IMPORTANCE OF PURSED LIP BREATHING, LAYING PRONE, PO HYDRATION AND NUTRITION, MEDICATIONS, O2 SUPPORT, PATIENT DOES NEED FREQUENT EDUCATION. NO COMPLAINTS OF PAIN. SELF REPOSITONS. USES URINAL, YELLOW/CLEAR. CALL LIGHT WITHIN REACH.
--- NOTE | 2020-12-18 21:39 | NUR ---
PATIENT SAT UP ON SIDE OF BED TO USE URINAL. DID BECOME SOB WITH EXERTION AND WITH CONVERSATING. PATIENT EXPRESSED HOW WORRIED HE WAS ABOUT PAYING HIS BILLS, HIS AT HOME, AND WAS ASKED, "WHEN ARE YA'LL GOING TO KILL ME. LONG CONVERSATION WAS HELD ABOUT COVID -19 VIRUS, EDUCATED AGAIN ON MEDICATIONS, VAPOTHERM. I ASKED HIM IF HE FELT ANXIOUS, PATIETN DOES ADMIT TO FEELING ANXIOUS, WILL FOLLOW UP WITH PROVIDER. PT ABLE TO LAY PRONE AGAIN. SPO2 DROPS TO 80% WHILE SITTING UP AND TALKING. PT SPO2 RECUPERATES TO 95% WHILE LAYING PRONE. CALL LIGHT WITHIN REACH.
--- NOTE | 2020-12-18 22:07 | NUR ---
CALLED AND SPOKE TO DR SINHA REGARDING PATIENT CONVERSATION AND PT ADMITS TO ANXIETY, NEW ORDERS RECEIVED FOR XANAX.
--- NOTE | 2020-12-18 22:35 | NUR ---
ON MY LAST ROUND I OFFERED TO CALL HIS TO PROVIDE PATIENT UPDATE SINCE PT REPORTS IS WORIED AT [facility], PT ACCEPTS. I CALLED ONCE AND DID NOT ANSWER.
[2020-12-19] VITALS (21 sets, daily range): BP systolic 100–172; BP diastolic 49–83
--- NOTE | 2020-12-19 00:15 | NUR ---
CALLED AND PSOKE TO DR SINHA TO NOTIFY PATIENT WANTS TO LEAVE AMA, REPORTS HE IS GOING TO WALK OUT. PT WAS TALKING ON THE PHONE WITH HIS SON TO WHICH I SPOKE TO AND EXPLAINED PATIENT'S SPO2 NUMBERS WELL WHAT TYPE OF OXYGEN PT IS REQUIRING. PATIENT CONTINUED TO YELL ON THE PHONE WITH HIS SON. OFFERED TO GIVE PT XANAX AND REFUSED. NEW ORDERS OBTAINED BY DR SINHA FOR ATIVAN.
--- NOTE | 2020-12-19 00:19 | NUR ---
PROVIDEC ATIVAN 1 MG IV TO PATIENT. PATIENT WAS ABLE TO LAY BACK IN BED ON HIS RIGHT SIDE. PATIENT DOES STILL CONTINUE TO BE RESTLESS, HAS TAKEN NASAL CANNULA OFF, AND ANOTHER TIME HE WAS PULLING ON POULTRY BREEDER EQUIPMENT. PATIENT IS REORIENTED EACH TIME.
--- NOTE | 2020-12-19 00:55 | NUR ---
CALLED AND SPOKE TO DR SINHA TO NOTIFY PT TAKES OFF NASAL CANNULA EVERY COUPLE OF MINUTES DUE TO ITCHING IN HIS NOSE. PT RUBS ON/IN HIS NOSE AND ENDS UP PULLING NASAL CANNULA OFF, SPO2 DROPS TO 80'S EACH TIME, FIO2 IS BEING TITRATED NEEDED, FIOS IS 80% NOW. NEW ORDERS RECEIVED.
--- NOTE | 2020-12-19 01:27 | NUR ---
PATIENT PULLS OFF OXYGEN AND BECOMES AGITATED, DOES NOT WANT TO PLACE BACK ON. WILL CALL FAMILY TO NOTIFY.
--- NOTE | 2020-12-19 01:35 | NUR ---
PATIENT PULLED ALL OF CARDIAC MONITORING OFF, SPO2 OFF, BP CUFF OFF, NASAL CANNULA OFF, ATTEMPTED TO PULL OFF R-FEMORAL TRIPLE LUMEN, AND WAS GETTING OUT OF BED. PATIENT WAS AGITATED. BILAT WRIST RESTRAINTS/SOFT PLACED. PATIENT WAS PULLED UP. EVERYTHING PLACED BACK ON.
--- NOTE | 2020-12-19 02:43 | NUR ---
CALLED PERSON TO NOTIFY, PELON ALEX WHICH IS SON OF PATIENT, TO UPDATE ON PATIENT CURRENT STATUS. ALSO VERIFIED PATIENT'S PHONE NUMBER WHICH IS THE SAME IN CHART.
--- NOTE | 2020-12-19 02:46 | NUR ---
CALLED PATIENT'S AND NO ANSWER.
--- NOTE | 2020-12-19 03:40 | NUR ---
CALLED RT WADNER TO NOTIFY ORDER RECEIVED TO PLACE ON BIPAP.
--- NOTE | 2020-12-19 03:43 | NUR ---
CALLED AND SPOKE TO DR SINHA TO NOTIFY PATIENT CURRENT STATUS, DESATS TO 70'S WHEN OFF OF THE VAPOTHERM, RESP RATE 30-40'S. PATIENT CONTINUES TO ATTEMPT TO RELEASE FROM RESTRAINTS, RESTLESS IN BED. MANAGES TO PULL OF INDUSTRIAL SALES ENGINEER. CONDOM CATHETER WAS WELL.
--- NOTE | 2020-12-19 04:00 | NUR ---
PATIENT WAS PLACED ON BIPAP: IPAP 14, EPAP 10, FIO2 70%, O2 SAT 92%. PATIENT REMAINS RESTRAINED, ALTHOUGH HE ATTEMPTS TO RELEASE FROM THEM. WILL CONTINUE TO MONITOR.
--- NOTE | 2020-12-19 04:51 | NUR ---
PATIENT MANAGES TO SIT UP AND PLACE FEET ON SIDE OF BED. AFTER REPETETIVE DIRECTION, PATIENT DOES NOT COOPERATE.
--- NOTE | 2020-12-19 06:11 | NUR ---
PATIENT WAS WASHED UP, LINENS CHANGED. REPOSITIONED. LAYS ON HIS R-SIDE, RESTRAINTS PLACED BACK ON. PATIENT IS AGITATED, CAN BE GUARDED AT TIMES. BLOOD REDRAWN FOR AM LABS DUE TO TUBES COAGULATED. SPO2 96%.
--- NOTE | 2020-12-19 06:16 | NUR ---
PT RECIEVED ON ALL DOCUMENTED PARAMETERS. ASLEEP, BARB BIPAP WEL AT THIS TIME. INDUSTRIAL ELECTRICAL ENGINEER TO MONITOR.
[2020-12-19 06:18] LABS: HEMATOCRIT 32.8 % (39.0-50.0); HEMOGLOBIN 11.2 g/dl (14.0-18.0); MEAN CELL VOLUME 86.3 fL CALC (80.0-100.0); MEAN CORPUSCULAR HGB 29.5 pG CALC (26.0-32.0); MEAN CORPUSCULAR HGB CONC 34.1 g/dL CAL (32.0-36.0); RED BLOOD COUNT 3.8 mill/uL (4.70-6.10); RED CELL DISTRI WIDTH 12.5 % (11.5-15.5)
[2020-12-19 06:24] LABS: ALBUMIN 2.5 g/dL (3.2-5.0); ALKALINE PHOSPHATASE 93 u/l (38-126); ANION GAP 10 (6-22 (CALC)); BILIRUBIN, TOTAL 0.8 mg/dL (0.0-1.4); BUN 24 mg/dL (8-23); BUN/CREATININE RATIO 26 (12-20 (CALC)); CARBON DIOXIDE 24 mmol/l (22-30); CHLORIDE 108 mmol/l (95-108); CREATININE 0.9 mg/dL (0.7-1.3); GFR > 60 ML/MIN (>=60 (CALC)); GFR FOR AFR.AMER. > 60 ML/MIN (>=60 (CALC)); SGOT/AST 35 u/l (19-48); SODIUM 137 mmol/l (137-146); TOTAL PROTEIN 5.4 g/dL (6.3-8.2)
--- NOTE | 2020-12-19 08:00 | NUR ---
PT RECIEVED ON ALL DOCUMENTED HHFNC PARAMETERS. WARP PREPARER CHNAGED HUMIDIFICATION RESEVOIR AT THIS TIME. PT FOUND C HHFN OUT OF NOSE, C SPO2 =75. WARP PREPARER CORRECTED ISSSUE AND OBSERVED SPO2 INCREASE TO 87% PRIOR TO VACATING THE ROOM. PT BARB WELL AT THIS TIME. WARP PREPARER TO MONITOR. RN AWARE.
--- NOTE | 2020-12-19 08:32 | NUR ---
RECIEVED ON BIPAP ATTEMPTED TO PLACE ON HEATED HIGH FLOW NC. EXPLAINED REASON FOR SWITCH TO ACCOMADATE EATING BREAKFAST. PT AGREES WHEN ATTEMPTING TO PLACE HEATED HIGH FLOW NC PT STARTS SHAKING HEAD VIGOROUSLY TO STOP ATTEMPT. PT THEN AGREES TO HAVE MACHINE ON ONCE AGAIN AND ONCE ON PT MAKES ATTEMPS TO REMOVE. EXTREMELY DISORIENTED AT THIS TIME ORIENTED ONLY TO NAME. REORIENTED BIPAP REPLACED.
--- NOTE | 2020-12-19 10:10 | NUR ---
RECIEVED PT ON ALL DOCUMEWNTED NIV PARAMETERS AT THIS TIME. BARB WELL. SOCIAL MEDIA INTERN TO MONITOR.
--- NOTE | 2020-12-19 10:16 | NUR ---
DR MARIA SPOKE WITH PT IN REGARDS TO PT WISHES WHEN IT COMES TO INTUBATION. PER DR MARIA '" WANTS EVERYTHING POSSIBLE DONE."
--- NOTE | 2020-12-19 12:50 | NUR ---
EXTREMELY AGITATED MAKING ATTEMPTS TO REMOVE BIPAP MASK. CARDIAC LEADS WERE REMOVED BY PT AND REPLACED BY RN ON MULTIPLE OCCASION. MD ON SITE RECEIVED ORDERS FOR ZYPREXA. MAD GIVEN AWAITING EFFECTIVENESS.
--- NOTE | 2020-12-19 13:30 | NUR ---
NO CHANGE NOTED IN PT BEHAVIOR. CONTINUE WITH FREQUENT REORIENTATION ANG RELAXATION TECHNIQUES.
--- NOTE | 2020-12-19 13:48 | NUR ---
HOTEL AND DINING ROOM CASHIER CALLED TO ICU FOR STAT ABG. UPONARRIVAL, HOTEL AND DINING ROOM CASHIER RECIEVED PT ON NIV 20/02 100% FIO2. PT C NAD. VSS. SPO2 =100. PT AROUSABLE AND APPROPRIATE MENTATION WHEN RESPONDING TO QUESTIONS. NAD. VSS. ABG RESULTS INDICATE WEAN FIO2 AT THIS TIME. WEANED FROM 100% FIO2 TO 80% FIO2. BARB WELL.
--- NOTE | 2020-12-19 19:35 | NUR ---
called and spoke to ciaran serrano regarding patient manages to pull of cardiac leads off, is restless in bed, has scooted down to the foot of the bed. new orders received.
--- NOTE | 2020-12-19 20:15 | NUR ---
PATIENT IS RESTLESS. ON BIPAP, FIO2 80%, SPO2 90'S WHEN NOT EXERTED OR RESTLESS. NURSE ASSESSMENT PERFORMED. GREGG SNOT FOLLOW DIRECTIONS OR COOPERATE. R-FEM TRIPLE LUMEN INTACT, IV FLUIDS INFUSING PROPERLY. AGUILAR CATHETER INTACT, DRAINS MARY/CLEAR URINE. RESTRAINTS INTACT.
--- NOTE | 2020-12-19 22:14 | NUR ---
PATIENT WAS PULLED UP, ATTEMPTED TO REPOSITION TO LAY ON HIS LEFT SIDE AND PATIENT MANAGES TO KEEP TURNING TO HIS RIGHT SIDE. PT IS RESTLESS, HR INCREASES TO 120-130'S, SPO2 DROPS TO 70'S-80'S. WHEN PT CALM HR LOWERS TO LOW 100'S AND SPO2 INCREASES BACK UP TO 90'S. I ASKED PT IF HE WANTED A DRINK OF WATER AND PT NODS NO, PT IS NOT FOLLOWING DIRECTIONS, IS GUARDED, ESPECIALLY WHEN REPOSITOINING BIPAP MASK, NODS AND TWISTS HEAD. ATTEMPTED TO PROVIDED PO MEDICTAIONS, NOT SUCCESSFUL. HOB AT [address]
--- NOTE | 2020-12-19 23:09 | NUR ---
PATIENT BECOMES RETSLESS, TWISTS AND NODS HEAD AND MANAGES TO PULL OF TUBING FROM BIPAP MASK, DESATTED. ATIVAN IV PROVIDED.
--- NOTE | 2020-12-19 23:20 | NUR ---
IN ROOM TO P;GERALDINE MAT MACHINE TENDER BACK ON SINCE PATIENT PULLED IT OFF, RESTRAINTS REPOSITIONED. PATIENT CONTINUE TO BE RESTLESS.
[2020-12-20] VITALS (24 sets, daily range): BP systolic 72–147; BP diastolic 43–82
--- NOTE | 2020-12-20 01:52 | NUR ---
PT RESTLESS, ATTEMPTING TO SIT UP. WAS REPOSITIONED, RESTRAINTS INTACT. SPO2 DROPS TO LOW 80'S WHEN EXERTED.
--- NOTE | 2020-12-20 04:20 | NUR ---
PATIENT CONTINUES TO BE RESTLESS AT TIMES. PT WAS REPOSITIONED. RESTRAINTS INTACT. AFEBRILE.
--- NOTE | 2020-12-20 04:53 | NUR ---
ATIVAN PROVIDED, PT IS RESTLESS, DESATS, TACHYCARDIC, TACHYPNEIC.
--- NOTE | 2020-12-20 05:29 | NUR ---
PT'S SPO2 86%, RT WAS CALLED AND PLACED PATIENT FIO2 100%, SPO2 NOW 94%, RESP RATE 30'S/SHALLOW. BP SET TO EVERY 15 MINUTES DUE TO READING LOW 70'S TO 80'S SYSTOLIC.
--- NOTE | 2020-12-20 06:02 | NUR ---
PATIENT RESTLESS. WAS REPOSITIONED, RESTRAINTS INTACT. SPO2 94% WHEN RESTING.
[2020-12-20 06:07] LABS: ALBUMIN 2.6 g/dL (3.2-5.0); ALKALINE PHOSPHATASE 98 u/l (38-126); ANION GAP 11 (6-22 (CALC)); BUN 20 mg/dL (8-23); BUN/CREATININE RATIO 16 (12-20 (CALC)); CARBON DIOXIDE 24 mmol/l (22-30); CHLORIDE 108 mmol/l (95-108); CREATININE 1.2 mg/dL (0.7-1.3); GFR 60 ML/MIN (>=60 (CALC)); GFR FOR AFR.AMER. > 60 ML/MIN (>=60 (CALC)); POTASSIUM 4.2 mmol/l (3.5-5.1); SGOT/AST 60 u/l (19-48); SODIUM 139 mmol/l (137-146); TOTAL PROTEIN 5.6 g/dL (6.3-8.2)
[2020-12-20 06:09] LABS: BASO% 0 % (0-3); EOS% 1 % (0-8); HEMATOCRIT 35.5 % (39.0-50.0); HEMOGLOBIN 11.8 g/dl (14.0-18.0); IMMATURE GRANULOCYTES 0.5 % (0.0-5.0); LYMPH% 3 % (15-41); MEAN CELL VOLUME 88.3 fL CALC (80.0-100.0); MEAN CORPUSCULAR HGB 29.4 pG CALC (26.0-32.0); MEAN CORPUSCULAR HGB CONC 33.2 g/dL CAL (32.0-36.0); MONO% 2 % (2-13); NEUT# 13.92 thou/uL (1.82-7.42); NEUT% 94 % (42-76); PLATELET COUNT 163 thou/uL (130-400); RED BLOOD COUNT 4.02 mill/uL (4.70-6.10); RED CELL DISTRI WIDTH 12.8 % (11.5-15.5)
[2020-12-20 06:33] LABS: BILIRUBIN, TOTAL 1.2 mg/dL (0.0-1.4); C-REACTIVE PROTEIN 22.5 mg/dL (0-0.9)
--- NOTE | 2020-12-20 10:45 | NUR ---
WEANED NIV PARAMETERS PER PT SPO2 AND PT TOLERANCE. PT BARB WELL AT THIS TIME. BANANA HANDLER PLACED HOB >30 DEGREES, PT RR DECREASED TO 33 AND SPO2 INCREASED TO 95. PT STATES MORE COMFORT IN THIS POSITION. BANANA HANDLER TO MONITOR.
--- NOTE | 2020-12-20 17:50 | NUR ---
WEANED FIO2 PER PT SPO2.
--- NOTE | 2020-12-20 19:30 | NUR ---
ASSESSMENT COMPLETED. PT. SLIGHTLY RESTLESS TOSSING AND TURNING. RESTRAINTS RELEASED FOR ROM AND REAPPLIED AND REPOSITIONED. PULSES PRESENT. HARD TO UNDERSTAND PT. WHEN ASKED QUESTIONS. RIJ TLC INTACT AND NS INFUSING @KVO. SKIN INTACT AND AGUILAR CATHETER IN PLACE. RT IN AT BEDSIDE. BIPAP IN PLACE AND SETTINGS PER RT. WILL CONTINUE TO MONITOR.
--- NOTE | 2020-12-20 21:45 | NUR ---
PT. IS ALERT TO PERSON AND PLACE; PT. IS STILL HARD TO UNDERSTAND AT TIMES COMPLETELY. REMOVED RESTRAINTS PT. APPEARS TO BE ABLE TO FOLLOW COMMANDS; WILL CONTINUE TO ASSESS NEED. BED ALARM ON. REPOSITIONED PT. BIPAP IN PLACE; SATURATION IS WNL, BUT DOES DECLINE WITH EXERTION; WILL CONTINUE TO MONITOR.
--- NOTE | 2020-12-20 22:40 | NUR ---
REPOSITIONED AT THIS TIME; SPO2 97%. BIPAP IN PLACE. WILL CONTINUE TO MONITOR.
--- NOTE | 2020-12-20 23:34 | NUR ---
PT. RESTLESS AND REMOVED BIPAP MASK A FEW TIMES; ATTEMPTED TO DO RELAXATION TECHNIQUES AND UNSUCCESSFUL; MEDICATED WITH ORDERED PRN ATIVAN; WILL REASSESS AND CONTINUE TO MONITOR. REPOSITIONED AT THIS TIME. CALL LIGHT IS IN REACH. BED ALARM ON.
[2020-12-21] VITALS (11 sets, daily range): BP systolic 92–139; BP diastolic 48–82
--- NOTE | 2020-12-21 01:15 | NUR ---
PT. CONTINUES TO REMOVE BIPAP MASK WITH NUMEROUS RE-EDUCATION AND RE-ORIENTATION TO MACHINE; WITH REMOVAL OF BIPAP MASK PT'S O2 LEVEL DECREASES IN THE 70'S;BIPAP BACK IN PLACE; REAPPLIED RESTRAINTS TO BILATERAL WRISTS PER ORDER WILL CONTINUE TO MONITOR. PT. REPOSITIONED; WILL CONTINUE TO MONITOR.
--- NOTE | 2020-12-21 03:30 | NUR ---
ATTEMPTED TO DRAW AM LABS VIA TLC AND UNSUCCESSFUL ALL THREE LUMENS FLUSHED WITH NS; NOTIFIED LAB THAT HE WILL BE A LAB DRAW FOR PHLEBOTOMY FOR AM LABS. AGUILAR CATHETER EMPTIED; RESTRAINTS IN PLACE; SEE INTERVENTION FOR CHARTING. BIPAP IN PLACE. WILL CONTINUE TO MONITOR.
--- NOTE | 2020-12-21 03:40 | NUR ---
PT. MANAGED TO REMOVE BIPAP MASK AGAIN WITH RESTRAINTS IN PLACE; REAPPLIED BIPAP MASK AND REPOSITIONED PT. THIS CURRENCY EXAMINER DID ATTEMPT TO DO LAB DRAW X1 ATTEMPT AND WAS UNSUCCESSFUL. BED ALARM ON. CALL LIGHT IS IN REACH.
--- NOTE | 2020-12-21 05:15 | NUR ---
SEE RESTRAINT INTERVENTION; ELECTRIC CLOCK MECHANIC IN AT BEDSIDE FOR AM LABS. BIPAP IN PLACE. WILL CONTINUE TO MONITOR.
--- NOTE | 2020-12-21 06:10 | NUR ---
PT. AGAIN KNOCKED HOSE OUT FROM BIPAP MASK AND DESATS TO 70'S; REPLACED AND SPO2 BACK UP TO 91%. WILL CONTINUE TO MONITOR. BED ALARM ON. RIGHT GROIN TLC INTACT WELL AGUILAR CATHETER.
[2020-12-21 06:56] LABS: HEMATOCRIT 34.4 % (39.0-50.0); HEMOGLOBIN 11.2 g/dl (14.0-18.0); MEAN CELL VOLUME 90.3 fL CALC (80.0-100.0); MEAN CORPUSCULAR HGB 29.4 pG CALC (26.0-32.0); MEAN CORPUSCULAR HGB CONC 32.6 g/dL CAL (32.0-36.0); RED BLOOD COUNT 3.81 mill/uL (4.70-6.10); RED CELL DISTRI WIDTH 12.9 % (11.5-15.5)
[2020-12-21 07:04] LABS: ALBUMIN 2.5 g/dL (3.2-5.0); ALKALINE PHOSPHATASE 129 u/l (38-126); ANION GAP 16 (6-22 (CALC)); BUN 26 mg/dL (8-23); BUN/CREATININE RATIO 28 (12-20 (CALC)); CARBON DIOXIDE 20 mmol/l (22-30); CHLORIDE 111 mmol/l (95-108); CREATININE 0.9 mg/dL (0.7-1.3); GFR > 60 ML/MIN (>=60 (CALC)); GFR FOR AFR.AMER. > 60 ML/MIN (>=60 (CALC)); POTASSIUM 4.1 mmol/l (3.5-5.1); SGOT/AST 61 u/l (19-48); SODIUM 143 mmol/l (137-146); TOTAL PROTEIN 5.5 g/dL (6.3-8.2)
[2020-12-21 07:06] LABS: BILIRUBIN, TOTAL 0.7 mg/dL (0.0-1.4)
--- NOTE | 2020-12-21 08:00 | NUR ---
PATIENT WAS RESTLESS UPON SHIFT CHANGE. SEEMS AGIATATED AND NOT ABLE TO FOLLOW COMMANDS
--- NOTE | 2020-12-21 11:07 | NUR ---
PT AGITIATED SPORADICALLY. WILL PULL AT NIV CIRCUIT AND DISCONNECT. NAD. VSS. BARB BIPAP AT THIS TIME. TRAINING AND DEVELOPMENT OFFICER TO MONITOR.
--- NOTE | 2020-12-21 12:17 | NUR ---
PATIENT RESTLESS AND CONTINUES TO MANUEVERE THE O2 MASK OFF OF HIS FACE AT A CONSTANT RATE
--- NOTE | 2020-12-21 16:03 | NUR ---
pt naked, in bed, laying flat, restless and agitated. no respiratory distress noted at this time. grounds and nursery specialist to monitor.
--- NOTE | 2020-12-21 16:29 | NUR ---
PATIENT CONTINUES TO BE RESTLESS THROUGH OUT THE DAY. VITALS ARE STABLE AND O2 REMAINS ABOVE 90 THROUGH OUT THE DAY
--- NOTE | 2020-12-21 18:24 | NUR ---
PATIENT REMAINED RESTLESS THROUGH OUT ENTIRE SHIFT. PULLING OF MASK.
--- NOTE | 2020-12-21 18:36 | NUR ---
PATIENT TO SIGN FOR AND FABRIC FINISHER CELL PHONE IN ER
--- NOTE | 2020-12-21 19:25 | NUR ---
RECEIVED PT DISROBED AND UNCOVERED WITH BILATERAL WRIST RESTRAINTS. PT REMOVED BIPAP MASK. O2 SAT DECREASED TO 72% THEN 54% WHILE ON ROOM AIR. PT BECAME DUSKY. BIPAP MASK HELD ON PT'S FACE. PT RESTLESS AND ATTEMPTED TO REMOVE MASK WHLE BEING HELD IN PLACE. RT CALLED TO BEDSIDE. O2 SAT GRADUALLY INCREASED TO 93% WHILE MASK IN PLACE. MASK RESECURED WITH STRAPS. PT VERBALIZED NAME AND REPORTED THAT HE IS IN THE HOSPITAL BECAUSE HE HAS COVID. NEED FOR BIPAP MASK AND OXYGEN EXPLAINED. PT STATES,i WANT TO LIVE,: AND AGREES TO KEEP MASK IN PLACE AT THIS TIME. PT DRESSED IN GOWN. COVERED WITH BLANKET. RESTRAINTS REMOVED. PT REPOSITIONED SELF TO RIGHT SIDE-LYING. O2 SAT INCREASED TO 96%. WILL COINTINUE TO MONITOR.
--- NOTE | 2020-12-21 22:00 | NUR ---
PT WITH INTERMITTENT PERIODS OF REST AND RESTLESSNES. O2 SATS 88% TO 91% SUPINE. SATS UP TO 98% WHEN SIDE-LYING. DR. SOARES PREVIOUSLY CALLED FOR UPDATE. UPDATE GIVEN. NEW ORDERS FOR A.M. ABG. CLOSE MONITORING PROVIDED.
[2020-12-22] VITALS (9 sets, daily range): BP systolic 93–161; BP diastolic 43–94
--- NOTE | 2020-12-22 00:15 | NUR ---
BEDSIDE REPORT RECEIVED FROM Martina CASANOVA RN. CARE OF PT ASSUMED AT THIS TIME.
--- NOTE | 2020-12-22 00:20 | NUR ---
PT FOUND TO BE RESTLESS, TACHYPNIC, SPO2 88% ON BIPAP WITH FIO2 80%. ATIVAN ADMINISTERED, SEE E-MAR. PT IMMEDIATELY CALMER, REPOSITIONED FOR COMFORT ON RIGHT SIDE. SPO2 UP TO 96%.
--- NOTE | 2020-12-22 00:35 | NUR ---
ADVISED DR. MARIA ABOUT PT'S RESTLESSNESS, TACHYPNEA AND HYPOXIA. ORDER FOR MORPHINE RECEIVED.
--- NOTE | 2020-12-22 00:45 | NUR ---
PT REPOSITIONED FOR COMFORT. MORPHINE ADMINISTERED, SEE E-MAR.
--- NOTE | 2020-12-22 01:20 | NUR ---
PT WORK OF BREATHING APPEARS TO BE LESS. RR FROM 45/MIN TO 31/MIN. SPO2 SUSTAINING AT 92% IB BIPAP. PT IS STILL RESTLESS AND PULLING ON AGUILAR, BIPAP AND IV.
--- NOTE | 2020-12-22 02:01 | NUR ---
PT REMAINS RESTLESS. PULLS AT AGUILAR, IV, AND BIPAP. SPO2 MAINTAINS BETWEEN 88-94%. ST 105. AGUILAR ASSESED FOR KINK. BLOCKAGE, OR OBSTRUCTION. NONE NOTED. AGUILAR FLOWING FREELY TO GRAVITY, SECURED TO LEG, FLOW UNOBSTRUCTED. ATTEMPTS TO CALM PT WITH VERBAL REASSURANCE, REPOSITIONING, AND REDUCING ENVIRONMENTAL STIMULI UNSUCCESFUL PT REMAINS RESTLESS. THIS NURSE REMAINS RIGHT OUTSIDE OF DOOR TO MAINTAIN 1:1 MONITORING FOR PT'S SAFETY.
--- NOTE | 2020-12-22 02:30 | NUR ---
PT REMAINS RESTLESS AND PULLING AT TUBES OR TRYING TO GET UP OUT OF BED. MAINTAINING SPO2 92-96%. ST 100. PT REMAINS UNDER CLOSE 1:1 MONITORING WITH THIS RN.
--- NOTE | 2020-12-22 04:39 | NUR ---
PT LAYING ON HIS SIDE, APPEARS TO BE SLEEPING. RR 33/MIN. SP02 92-94%, SR 80'S. PT CALM AND NOT PULLING AT LINES. WILL CON'T TO MONITOR 1:1 OUTSIDE OF ROOM.
--- NOTE | 2020-12-22 05:10 | NUR ---
ASISSTED Karo [employer]IR[employer]CHNICIAN TO COLLECT ABG. AM LABS ALSO COLLECTED AT THIS TIME. PT REMAINS RESTLESS AND ATTEMPTING TO PULL OFF BIPAP, CENTRAL LINE AND AGUILAR. SPO2 94%, RR 30/MIN, ST 101 ON MONIOTR.
[2020-12-22 06:13] LABS: HEMATOCRIT 34.7 % (39.0-50.0); HEMOGLOBIN 11.7 g/dl (14.0-18.0); IMMATURE GRANULOCYTES 0.2 % (0.0-5.0); MEAN CELL VOLUME 87.2 fL CALC (80.0-100.0); MEAN CORPUSCULAR HGB 29.4 pG CALC (26.0-32.0); MEAN CORPUSCULAR HGB CONC 33.7 g/dL CAL (32.0-36.0); NEUT# 21.21 thou/uL (1.82-7.42); RED BLOOD COUNT 3.98 mill/uL (4.70-6.10); RED CELL DISTRI WIDTH 13.4 % (11.5-15.5)
--- NOTE | 2020-12-22 06:15 | NUR ---
PT MORE AGITATED, PULLING AT BIPAP, WILL NOT RE-ORIENT OR CALM DOWN WITH VERBAL CUES OR DISTRACTION. APPEARS DYSPNIC WITH INCREASE WORKS OF BREATHING SP02 86%. ATIVAN AND MORPHINE ADMINISTERED.
--- NOTE | 2020-12-22 06:20 | NUR ---
PCXR HELD DUE TO AGITATION/ UNABLE TO GET PT TO BE STILL. RADIOLOGY TO ATTEMPT AGAIN LATER. 350ML DARK YELLOW, CONCENTRATED CLOUDY URINE EMPTIED FROM AGUILAR.
--- NOTE | 2020-12-22 06:45 | NUR ---
PT LAYING ON HIS RIGHT SIDE, SIMILIAR TO POSITION. APPEARS TO BE SLEEPING COMFORTABLY. NO APPARENT DISTRESS. RESPIRATIONS REGULAR AND UNLABORED. SPO2 93%. SR 78. RR 29/MIN.
[2020-12-22 06:47] LABS: ALBUMIN 2.6 g/dL (3.2-5.0); ANION GAP 14 (6-22 (CALC)); BUN 30 mg/dL (8-23); BUN/CREATININE RATIO 34 (12-20 (CALC)); CARBON DIOXIDE 21 mmol/l (22-30); CHLORIDE 114 mmol/l (95-108); CREATININE 0.9 mg/dL (0.7-1.3); GFR > 60 ML/MIN (>=60 (CALC)); GFR FOR AFR.AMER. > 60 ML/MIN (>=60 (CALC)); POTASSIUM 4.3 mmol/l (3.5-5.1); SGOT/AST 75 u/l (19-48); SODIUM 145 mmol/l (137-146); TOTAL PROTEIN 5.7 g/dL (6.3-8.2)
[2020-12-22 06:58] LABS: ALKALINE PHOSPHATASE 204 u/l (38-126); C-REACTIVE PROTEIN 16.2 mg/dL (0-0.9)
--- NOTE | 2020-12-22 08:00 | NUR ---
PATIENT IS ASLEEP AND RESTFUL. POSSIBLY CHANGE TO VAPOTHERM IF ONE BECOMES AVAILABLE.
--- NOTE | 2020-12-22 08:37 | NUR ---
PATIENT ASLEEP. HOTEL OR MOTEL ROOM SERVICE SUPERVISOR NURSE REPORTS THAT PATIENT HAD A RESTLESS NIGHT AND TO ASK MD ABOUT SWITCHING TO HIGH KIRAN
--- NOTE | 2020-12-22 12:00 | NUR ---
PATIENT IS STILL RESTFUL. NO STAUS CHANGE TO REPORT AT THIS TIME
--- NOTE | 2020-12-22 16:34 | NUR ---
PATIENT BECAME AGITATED ONCE AGAIN. MEDICATED PER RECOMMENDATION. SEE EMAR
--- NOTE | 2020-12-22 19:00 | NUR ---
REPORT GIVEN BY AGUSTIN HOLLINS. PATIENT RESTING WITH EYES CLOSED LAYING ON HIS SIDE. BIPAP IN PLACE, REFER TO BIPAP CHARTING FOR SETTINGS. RESP SHALLOW AND LABORED. FALL AND SAFTEY PRECAUTIONS IN PLACE. R FEM TLC INFUSING KVO FLUIDS, NO BLOOD RETURN. SKIN INTACT. NSR ON TELE. PATIENT EDUCATED ON COMING BIPAP IN PLACE, DISINTEREST NOTED. AGUILAR DRAINING TO GRAVITY, MARY COLORED URINE PRESENT.
--- NOTE | 2020-12-22 19:19 | NUR ---
PATIENT REFUSING TO FOLLOW COMMANDS, UNABLE TO GIVE PM MEDICATIONS BY MOUTH
--- NOTE | 2020-12-22 21:18 | NUR ---
UPDATED DR. MARIA ON PATIENT CONDITION
--- NOTE | 2020-12-22 23:47 | NUR ---
PATIENT RESTING WITH EYES CLOSED.
[2020-12-23] VITALS (12 sets, daily range): BP systolic 84–157; BP diastolic 47–107
--- NOTE | 2020-12-23 02:16 | NUR ---
PATIENT REMOVED BIPAP MASKING TUBING, O2 SAT DROPPED TO 43%. ONCE BIPAP WAS ON CORRECTLY, PATIENT'S O2 SAT RETURNED TO GREATER THAN 85%. FALL AND SAFTEY PRECAUTIONS IN PLACE.
--- NOTE | 2020-12-23 02:53 | NUR ---
patient removed bipap mask, o2 sat dropped to 35%. mask placed back on patient, o2 sat recovered to 85%.
--- NOTE | 2020-12-23 02:54 | NUR ---
patient medicated with ativan and morphine per md orders
--- NOTE | 2020-12-23 04:28 | NUR ---
PATIENT GIVEN FULL BED BATH. HE REMOVED HIS BIPAP MASK. FULL LINEN CHANGE PERFORMED. PATIENT DISCONNECTED AGUILAR BAG TUBING FROM AGUILAR, URINE COVERED SHEET WITH LESS THAN 100 ML OF URINE IN BAG. FALL AND SAFTEY PRECAUTIONS IN PLACE.
--- NOTE | 2020-12-23 07:20 | NUR ---
Patient is restless and complainting of discomfort with lam catheter. Educated on importance of keeping BiPap on since he continue trying to remove it. Patient is reposition and will continue to monitor.
[2020-12-23 08:33] LABS: HEMATOCRIT 36.7 % (39.0-50.0); MEAN CELL VOLUME 89.7 fL CALC (80.0-100.0); MEAN CORPUSCULAR HGB 29.3 pG CALC (26.0-32.0); MEAN CORPUSCULAR HGB CONC 32.7 g/dL CAL (32.0-36.0); RED BLOOD COUNT 4.09 mill/uL (4.70-6.10); RED CELL DISTRI WIDTH 13.5 % (11.5-15.5)
[2020-12-23 09:20] LABS: ALBUMIN 2.9 g/dL (3.2-5.0); ALKALINE PHOSPHATASE 236 u/l (38-126); ANION GAP 11 (6-22 (CALC)); BILIRUBIN, TOTAL 0.9 mg/dL (0.0-1.4); BUN 30 mg/dL (8-23); BUN/CREATININE RATIO 36 (12-20 (CALC)); CARBON DIOXIDE 24 mmol/l (22-30); CHLORIDE 116 mmol/l (95-108); CREATININE 0.8 mg/dL (0.7-1.3); GFR > 60 ML/MIN (>=60 (CALC)); GFR FOR AFR.AMER. > 60 ML/MIN (>=60 (CALC)); POTASSIUM 4.2 mmol/l (3.5-5.1); SGOT/AST 57 u/l (19-48); SODIUM 146 mmol/l (137-146); TOTAL PROTEIN 6.2 g/dL (6.3-8.2)
--- NOTE | 2020-12-23 11:45 | NUR ---
Patient's and grandaughter called. Update was provided. Patient is agitated and expresses discomfort in his penis. Constantly pulling on lam catheter and pulling off BiPap mask. I have provided barriers to prevent him from pulling out the lam catheter. Patient does not follow commands. Will continue to monitor and redirecting him from pulling on medical equipment.
--- NOTE | 2020-12-23 17:00 | NUR ---
Patient's CVL Right femoral dressing was changed. Dressing was saturated changed to make sure it wasn't leaking. Patient still remains confused and pulling on medical equipment. Medical staff keeps going into repositioning him every 10-15 minutes due to him pull off BiPaP mask causing his oxygentation to drop. Will continue to monitor.
--- NOTE | 2020-12-23 18:00 | NUR ---
Patient is still restless not listening confused. Constantly pulling on medical equipment even with restraints. Durant catheter was checked for placement due to some urine on linens.
--- NOTE | 2020-12-23 19:10 | NUR ---
REPORT GIVEN BY LIANE. PATIENT CONFUSED. BILATERAL WRIST RESTRIANTS PRESENT. PATIENT CONTIUNE TO TRY AN REMOVE CENTRAL LINE, AGUILAR, AND BIPAP. R-FEM TLC INFUSING KVO FLUIDS. AGUILAR DRAINING TO GRAVITY MARY COLORED URINE. FALL AND SAFTEY PRECAUTIONS IN PLACE.
--- NOTE | 2020-12-23 20:43 | NUR ---
HEART RATE 199 FOR LESS THAN 10 SEC, SUSTAINED HEART RATE GREATER THAN 100. EKG ORRED TO VERIFY.
--- NOTE | 2020-12-23 21:55 | NUR ---
DR. WRIGHT UPDATED ON PATIENT CONDITION. PATIENT HEARTRATE SUSTAINING GREATER THAN 100 BPM. NEW ORDERS GIVEN FOR LOPRESSOR.
--- NOTE | 2020-12-23 23:03 | NUR ---
PATIENT MOVING FROM SIDE TO SIDE. FIDGETING AND MOVING FEET. FALL AND SAFTEY PRECAUTIONS IN PLACE. BILATERAL WRIST RESTRIANTS IN PLACE. AGUILAR DRAINING.
[2020-12-24] VITALS (23 sets, daily range): BP systolic 100–176; BP diastolic 62–92
--- NOTE | 2020-12-24 00:47 | NUR ---
PATIENT GIVEN FULL BED BATH.
--- NOTE | 2020-12-24 01:37 | NUR ---
PATIENT REMOVED BIPAP MASK AND WRIST RESTRIANT. BOTH PLACED BACK ON PATIENT. BIPAP FIO2 INCREASED FROM 80% TO 85%.
--- NOTE | 2020-12-24 02:31 | NUR ---
PATIENT REMOVED BI-PAP MASK, O2 SAT 32%. MASK REPLACED. PATIENT SLOWLY RECOVERING
--- NOTE | 2020-12-24 03:05 | NUR ---
PATIENT GIVEN MEDICATED FOR AGITATION PER MD ORDERS
[2020-12-24 04:20] LABS: BASO% 0 % (0-3); EOS% 0 % (0-8); HEMATOCRIT 35.3 % (39.0-50.0); HEMOGLOBIN 11.5 g/dl (14.0-18.0); IMMATURE GRANULOCYTES 0.3 % (0.0-5.0); LYMPH% 2 % (15-41); MEAN CELL VOLUME 90.3 fL CALC (80.0-100.0); MEAN CORPUSCULAR HGB 29.4 pG CALC (26.0-32.0); MEAN CORPUSCULAR HGB CONC 32.6 g/dL CAL (32.0-36.0); MONO% 3 % (2-13); NEUT% 95 % (42-76); PLATELET COUNT 135 thou/uL (130-400); RED BLOOD COUNT 3.91 mill/uL (4.70-6.10); RED CELL DISTRI WIDTH 13.5 % (11.5-15.5)
--- NOTE | 2020-12-24 04:36 | NUR ---
PATIENT CONTIUNES TO REMOVE BI-PAP MASK, FIO2 INCREASED TO 100% DUE TO PROLONGED LOW O2 SAT 75-77%. PATIENT STILL RECOVERING, O2 SAT 82%.
[2020-12-24 04:50] LABS: ALBUMIN 2.5 g/dL (3.2-5.0); ALKALINE PHOSPHATASE 217 u/l (38-126); ANION GAP 12 (6-22 (CALC)); BILIRUBIN, TOTAL 0.9 mg/dL (0.0-1.4); BUN 28 mg/dL (8-23); BUN/CREATININE RATIO 28 (12-20 (CALC)); C-REACTIVE PROTEIN 6.5 mg/dL (0-0.9); CARBON DIOXIDE 27 mmol/l (22-30); CHLORIDE 115 mmol/l (95-108); GFR > 60 ML/MIN (>=60 (CALC)); GFR FOR AFR.AMER. > 60 ML/MIN (>=60 (CALC)); POTASSIUM 3.9 mmol/l (3.5-5.1); SGOT/AST 47 u/l (19-48); SODIUM 150 mmol/l (137-146); TOTAL PROTEIN 5.5 g/dL (6.3-8.2)
--- NOTE | 2020-12-24 06:45 | NUR ---
REPORT RECEIVED FROM YESENIA HOLLINS. CARE ASSUMED.
--- NOTE | 2020-12-24 07:30 | NUR ---
PT RESTLESS IN BED. O2 SATS LOW ON MONITOR. RT CALLED TO EVALUATE PATIENT. DR WRIGHT NOTIFIED. NEW ORDERS RECEIVED.
--- NOTE | 2020-12-24 07:45 | NUR ---
AGUILAR CHANGED TO 18FR DUE TO LEAKING USING STERILE TECHNIQUE. FILLED BALLOON WITH 20CC TO HELP PREVENT LEAKING. PATIENT GIVEN COMPLETE BED BATH AND LINEN CHANGE. PT MEDICATED PER MAR WITH MORPHINE PER MD ORDERS. AM ASSESSMENT COMPLETED AT THIS TIME. PT ABLE TO FOLLOW VERBAL COMMANDS BUT DOES NOT ANSWER THE QUESTIONS WHEN ASKED SO UNABLE TO FULLY ASSESS ORIENTATION STATUS. RESTRAINTS IN PLACE FOR PATIENT SAFETY. CALL LIGHT IN REACH. WILL CONTINUE TOMONITOR.
--- NOTE | 2020-12-24 09:30 | NUR ---
DR WRIGHT AT BEDSIDE AT THIS TIME. PLAN OF CARE DISCUSSED WITH NURSE AT THIS TIME.
--- NOTE | 2020-12-24 10:30 | NUR ---
PT RESTING IN BED WITH EYES CLOSED. RESP ARE EVEN AND UNLABORED. BIPAP IN PLACE. RESP ARE EVEN AND UNLABORED. NO DISTRESS NOTED. CALL LIGHT IN REACH. WILL CONTINUE TOMONITOR.
--- NOTE | 2020-12-24 11:49 | NUR ---
CALLED [facility] AT SPOKE TO BEULAH RIVERA PT INFORMATION WAS GIVEN CONFIRMATION NUMBER [id number].
--- NOTE | 2020-12-24 12:00 | NUR ---
PT RESTING IN BED WITH EYES CLOSED. RESP ARE EVEN AND UNLABORED. NO DISTRESS NOTED. CALL LIGHT IN REACH.WILL CONTINUE TO MONITOR.
--- NOTE | 2020-12-24 14:14 | NUR ---
PT RESTING IN BED WITH EYES CLOSED. RESP ARE EVEN AND UNLABORED. NO DISTRESS NOTED. CALL LIGHT IN REACH. WILL CONTINUE TOMONTIOR.
--- NOTE | 2020-12-24 18:00 | NUR ---
PT RESTING IN BED WITH EYES CLOSED. RESP ARE EVEN AND UNLABORED. NO DISTRESS NOTED. CALL LIGHT IN REACH. WILL CONTINUE TO MONITOR.
--- NOTE | 2020-12-24 19:00 | NUR ---
REPORT RECEIVED FROM Chay HERNADEZ RN, CARE OF PT ASSUMED AT THIS TIME. Earnest BURNHAMA ASSIGNED TO CARE OF PT WELL.
--- NOTE | 2020-12-24 19:45 | NUR ---
PT APPEARS TO BE SLEEPING COMFORTABLY. LAYING SUPINE. RESPIRATIONS REGULAR AND UNLABORED. BIPAP ON WITHOUT LEAK. RR 19/MIN. SPO2 97%. SR 70'S/80'S ON MONITOR. ISOLATION PRECAUTIONS FFOR COVID-[address] BED ALARM ON. BED LOCKED IN LOW POSITION. CALL GLASS WITHIN REACH.
--- NOTE | 2020-12-24 19:48 | NUR ---
PT APPEARS TO BE SLEEPING COMFORTABLY. LAYING SUPINE. RESPIRATIONS REGULAR AND UNLABORED. BIPAP ON WITHOUT LEAK. RR 25/MIN. SPO2 89-91%. SB 50'S ON MONITOR. ISOLATION PRECAUTIONS FFOR COVID-[address] BED ALARM ON. BED LOCKED IN LOW POSITION. CALL GLASS WITHIN REACH.
--- NOTE | 2020-12-24 23:07 | NUR ---
PT APPEARS TO BE SLEEPING COMFORTABLY. LAYING SUPINE. RESPIRATIONS REGULAR AND UNLABORED. BIPAP ON WITHOUT LEAK. RR 21/MIN. SPO2 98%. SR 80'S ON MONITOR. ISOLATION PRECAUTIONS FOR COVID-[address] BED ALARM REMAINS ON. BED REMAINS LOCKED IN LOW POSITION WITH BEDRAILS UP X2 CALL GLASS REMAINS WITHIN REACH.
[2020-12-25] VITALS (45 sets, daily range): BP systolic 75–186; BP diastolic 49–97
--- NOTE | 2020-12-25 02:31 | NUR ---
PT APPEARS TO BE SLEEPING COMFORTABLY. LAYING SUPINE. RESPIRATIONS REGULAR AND UNLABORED. BIPAP ON WITHOUT LEAK. RR 19/MIN. SPO2 98%. SR 70'S ON MONITOR. ISOLATION PRECAUTIONS FOR COVID-[address] BED ALARM REMAINS ON. BED REMAINS LOCKED IN LOW POSITION WITH BEDRAILS UP X2 CALL GLASS REMAINS WITHIN REACH.
--- NOTE | 2020-12-25 04:24 | NUR ---
PT APPEARS TO BE SLEEPING COMFORTABLY. LAYING SUPINE. RESPIRATIONS REGULAR AND UNLABORED. BIPAP ON WITHOUT LEAK. RR 16/MIN. SPO2 98%. SR 60'S ON MONITOR. ISOLATION PRECAUTIONS FOR COVID-[address] BED ALARM REMAINS ON. BED REMAINS LOCKED IN LOW POSITION WITH BEDRAILS UP X2 CALL GLASS REMAINS WITHIN REACH.
--- NOTE | 2020-12-25 05:40 | NUR ---
PT AWAKES IN A PANIC AND PULLS OFF BIPAP. SPO2 QUICKLY DROPS INTO THE 60S. PT IS DISTRESSED AND TACHYPNIC. PT VERBALLY CALMED AFTER BIPAP RESECURED. HR IN THE 120'S, WILL ADMINISTER IV LOPRESSOR, SEE E-MAR. PT CALMER AND SAT MAINTAINING 88%. Karo GIRALDO TREASURY MANAGER ADVISED, STATES HE WILL GO IN TO CHECK PT AND BIPAP.
--- NOTE | 2020-12-25 05:49 | NUR ---
UNABLE TO DRAW BLOOD FROM R-FEMORAL TLC, CLINICAL AIDE MADE AWARE AM LABS WOULD NEED TO BE COLLECTED PERIPHERALLY. WILL ENDORSE TO ONCOMING NURSE AND SUGGEST OBTAINING ORDER FOR CATH-KIRAN.
--- NOTE | 2020-12-25 06:05 | NUR ---
PCXR IN ROOM.
--- NOTE | 2020-12-25 06:10 | NUR ---
Karo GIRALDO LIBRARY SALES CONSULTANT IN ROOM WITH PT MAKING ADJUSTMENTS TO BIPAP.
--- NOTE | 2020-12-25 06:43 | NUR ---
PT ABLE TO TAKE BIPAP MASK APART, DESATURATES TO THE 60'S WITH MASK OFF. FELTON SAFEKEEPING CLERK IN TO ROOM TO ADJUST MASK AND SETTINGS. PT RE-RESTRAINED AND MEDICATED WITH MORPHINE, SEE E-MAR.
--- NOTE | 2020-12-25 06:45 | NUR ---
REPORT RECEIVED FROM MARS HOLLINS. CARE ASSUMED.
--- NOTE | 2020-12-25 07:40 | NUR ---
PT RESTING IN BED ON BIPAP. RESP ARE EVEN AND UNLABORED. SHIFT ASSESSMENT COMPLETED AT THIS TIME. IV PATENT X1. CALL LIGHT IN REACH. WILL CONTINUE TO MONITOR.
--- NOTE | 2020-12-25 08:30 | NUR ---
DR WRIGHT AT BEDSIDE. PLAN OF CARE DISCUSSED.
--- NOTE | 2020-12-25 09:30 | NUR ---
ASSISTED PATIENT UP TO CHAIR AT BEDSIDE ON BIPAP. O2 SATS DECREASED TO 60% SLOW RECOVERY BACK TO 88%.
--- NOTE | 2020-12-25 10:30 | NUR ---
PATIENT BECAME AGITATED SITTING UP IN CHAIR. PATIENT WANTING TO GET BACK IN BED. PATIENT ASSISTED BACK TO BED.
--- NOTE | 2020-12-25 10:45 | NUR ---
O2 SATS 78% ON BIPAP. DR WRIGHT NOTIFED. ORDERS RECEIVED TO INTUBATE PATIENT. DR NICOLE AND RT NOTIFIED.
--- NOTE | 2020-12-25 11:20 | NUR ---
INTUBATION BELOW 1115- ETOMIDATE 20MG GIVEN IV PUSH 1116- ROCORNIUM 100MG GIVEN IV PUSH 1120- PATIENT INTUBATED WITH 8.0 ET @[address] NICOLE UNABLE TO PLACE OG TUBE AT THIS TIME DUE TO PATIENT BEING SO DRY WILL TRY LATER SCDS PLACED ON PATIENT PATIENT PLACED ON AIR MATTRESS 1125- PATIENT PLACED ON PROPOFOL GTT 1200- LEVOPHED GTT STARTED
--- NOTE | 2020-12-25 11:45 | NUR ---
ANAHY NICOLE IN INTUBATION AT 1138. #8.0 ETT @ 24 CM AT THE LIP. PT WAS PREOXYGENATED PRIOR TO INTUBATION. INTUBATION TOLERATED WELL, AND WAS SUCCESSFUL ON ONE ATTEMPT
--- NOTE | 2020-12-25 13:20 | NUR ---
FIO2 INCREASED TO 70%.
--- NOTE | 2020-12-25 14:14 | NUR ---
LAB AT BEDSIDE TO DRAW LABS
[2020-12-25 14:37] LABS: HEMATOCRIT 38.5 % (39.0-50.0); HEMOGLOBIN 12.3 g/dl (14.0-18.0); MEAN CELL VOLUME 92.3 fL CALC (80.0-100.0); MEAN CORPUSCULAR HGB 29.5 pG CALC (26.0-32.0); MEAN CORPUSCULAR HGB CONC 31.9 g/dL CAL (32.0-36.0); RED BLOOD COUNT 4.17 mill/uL (4.70-6.10); RED CELL DISTRI WIDTH 13.6 % (11.5-15.5)
[2020-12-25 14:45] LABS: BUN 34 mg/dL (8-23); BUN/CREATININE RATIO 37 (12-20 (CALC)); CARBON DIOXIDE 30 mmol/l (22-30); CHLORIDE 106 mmol/l (95-108); CREATININE 0.9 mg/dL (0.7-1.3); GFR > 60 ML/MIN (>=60 (CALC)); GFR FOR AFR.AMER. > 60 ML/MIN (>=60 (CALC))
[2020-12-25 14:48] LABS: ANION GAP 11 (6-22 (CALC)); POTASSIUM 4.7 mmol/l (3.5-5.1); SODIUM 142 mmol/l (137-146)
--- NOTE | 2020-12-25 14:48 | NUR ---
RADIOLOGY AT BEDSIDE FOR CHEST XRAY
--- NOTE | 2020-12-25 16:00 | NUR ---
PT RESTING IN BED INTUBATED AND SEDATED. VSS ON MONITOR. WILL CONTINUE TO MONITOR CLOSELY.
--- NOTE | 2020-12-25 18:00 | NUR ---
PT RESTING IN BED INTUBATED AND SEDATED AT THIS TIME. VSS ON MONITOR. WILL CONTINUE TO MONITOR.
[2020-12-25 18:40] LABS: HEMATOCRIT 36.5 % (39.0-50.0); HEMOGLOBIN 11.6 g/dl (14.0-18.0); IMMATURE GRANULOCYTES 0.4 % (0.0-5.0); MEAN CELL VOLUME 91.7 fL CALC (80.0-100.0); MEAN CORPUSCULAR HGB 29.1 pG CALC (26.0-32.0); MEAN CORPUSCULAR HGB CONC 31.8 g/dL CAL (32.0-36.0); PLATELET COUNT 207 thou/uL (130-400); RED BLOOD COUNT 3.98 mill/uL (4.70-6.10); RED CELL DISTRI WIDTH 13.6 % (11.5-15.5)
[2020-12-25 18:49] LABS: MANUAL DIFFERENTIAL YES
--- NOTE | 2020-12-25 19:00 | NUR ---
REPORT RECEIVED FROM Chay HERNADEZ RN, CARE OF PT ASSUMED AT THIS TIME. Earnest BURNHAMA ASSIGNED TO CARE OF PT WELL.
[2020-12-25 19:12] LABS: BAND 5 % (0-8)
--- NOTE | 2020-12-25 21:00 | NUR ---
ET SUCTION PERFORMED, NO SECRETIONS NOTED. ORAL MUCOSA AND LIPS DRIED AND CHAPPED. EXTENSIVE ORAL CARE PERFORMED.
--- NOTE | 2020-12-25 21:50 | NUR ---
18 FR. OG TUBE INSERTED BY Earnest HYAWOOD LPN. PLACEMENT VERIFIED WITH AIR BOLUS. NO OUTPUT. CONECTED TO LIS.
--- NOTE | 2020-12-25 22:00 | NUR ---
R-GROIN TLC POWER FLUSHED IN EACH PERT WITH 20ML NS. NO BLOOD RETURN. 1ST SET OF BLOOD CULTURES COLLECTED PERIPHERALLY.
--- NOTE | 2020-12-25 22:25 | NUR ---
2ND SET BLOOD CX COLLECTED BY Earnest MCCLENDON.
[2020-12-26] VITALS (30 sets, daily range): BP systolic 103–149; BP diastolic 56–72
--- NOTE | 2020-12-26 04:18 | NUR ---
Martina CLAROS OPTOMETRY TEACHER IN ROOM PERFORMING PCXR.
--- NOTE | 2020-12-26 04:50 | NUR ---
Gerber SULLIVAN EDUCATIONAL COORDINATOR AT BEDSIDE COLLECTING ABG.
--- NOTE | 2020-12-26 06:39 | NUR ---
weaned fio2 as per pt spo2. pt recieved on all other documented paramters. pt nixon wean well at this time. nad. coiler operator to monitor.
[2020-12-26 06:44] LABS: HEMATOCRIT 37.5 % (39.0-50.0); IMMATURE GRANULOCYTES 0.4 % (0.0-5.0); MEAN CELL VOLUME 92.8 fL CALC (80.0-100.0); MEAN CORPUSCULAR HGB 29.7 pG CALC (26.0-32.0); NEUT# 24.12 thou/uL (1.82-7.42); RED BLOOD COUNT 4.04 mill/uL (4.70-6.10); RED CELL DISTRI WIDTH 13.5 % (11.5-15.5)
--- NOTE | 2020-12-26 06:45 | NUR ---
REPORT RECEIVED FROM MARS HOLLINS. CARE ASSUMED.
[2020-12-26 07:33] LABS: ALBUMIN 2.5 g/dL (3.2-5.0); ALKALINE PHOSPHATASE 218 u/l (38-126); ANION GAP 11 (6-22 (CALC)); BILIRUBIN, TOTAL 0.6 mg/dL (0.0-1.4); BUN 34 mg/dL (8-23); BUN/CREATININE RATIO 27 (12-20 (CALC)); CARBON DIOXIDE 29 mmol/l (22-30); CHLORIDE 106 mmol/l (95-108); CREATININE 1.3 mg/dL (0.7-1.3); GFR 55 ML/MIN (>=60 (CALC)); GFR FOR AFR.AMER. > 60 ML/MIN (>=60 (CALC)); POTASSIUM 4.6 mmol/l (3.5-5.1); SGOT/AST 29 u/l (19-48); SODIUM 141 mmol/l (137-146); TOTAL PROTEIN 5.6 g/dL (6.3-8.2)
[2020-12-26 07:47] LABS: C-REACTIVE PROTEIN 12.7 mg/dL (0-0.9)
--- NOTE | 2020-12-26 08:10 | NUR ---
PT RESTING IN BED INTUBATED AND SEDATED. SHIFT ASSESSMENT COMPLETED AT THIS TIME. IV PATENT X1. VSS ON MONITOR. AWAKENING TRIAL COMPLETED AT THIS TIME. SEE DRIP TITRATIONS. WILL COTNINUE TO MONITOR.
--- NOTE | 2020-12-26 08:44 | NUR ---
S: PELON COSTELLO is a 70 M who presents with acute respiratory failure with hypoxia due to COVID pneumonia. He has a history of TIA, kidney stones, CP FL, cardiac stents, COVID. All medications in patient's chart were reviewed. O: VS: BP 124/62 mmHg, P 48 bpm, RR 10 breath/min, T 96.8F W 100 kg, HT 69 inches, Scr= 1.3 mg/dL, CrCl= 63 ml/min A: Blood culture is pending. P: Patient is on Zosyn 3.375g IV Q6H. Vancomycin ordered for pharmacy to dose. Start Vancomycin 1g IV Q12H. Vancomycin trough is drawn before the 4th dose on 12/27/20 at 0830. Vancomycin goal trough is between 15-20 mcg/ml. Pharmacy will follow and or advise on antibiotics use as needed.
--- NOTE | 2020-12-26 09:00 | NUR ---
DR WRIGHT AT BEDSIDE AT THIS TIME. PLAN OF CARE DISCUSSED.
--- NOTE | 2020-12-26 10:00 | NUR ---
PT RESTING IN BED INTUBATED AND SEDATED. VSS ON MONITOR. WILL CONTINUE TO MONITOR.
--- NOTE | 2020-12-26 10:10 | NUR ---
weaned fio2 aqs per pt spo2. pt nixon young at this time. nad. ship unloader to monitor.
--- NOTE | 2020-12-26 12:00 | NUR ---
PT RESTING IN BED INTUBATED AND SEDATED AT THIS TIME. NO DISTRESS NOTED. VSS ON MONTIOR. WILL CONTINUE TO MONITOR.
--- NOTE | 2020-12-26 12:32 | NUR ---
weaned peep as per pt spo2. nixon well at this time. nad. pet feeder to monitor.
--- NOTE | 2020-12-26 14:00 | NUR ---
PT RESTING IN BED INTUBATED AND SEDATED AT THIS TIME. VSS ON MONITOR. WILL CONTINUE TO MONITOR.
--- NOTE | 2020-12-26 14:47 | NUR ---
TITRATED PARAMETERS PER PT SPO2. PT BARB WELL AT THIS TIME. CELERY STRIPPER TO MONITOR.
--- NOTE | 2020-12-26 16:00 | NUR ---
PT RESTING IN BED INTUBATED AND SEDATED. VSS ON MONITOR. WILL CONTINUE TO MONITOR.
--- NOTE | 2020-12-26 17:06 | NUR ---
titrated parameters as per pt spo2. nixon well at this time. changed hme. systems mgr to monitor.
--- NOTE | 2020-12-26 18:18 | NUR ---
CONTINUOUS TUBE FEED PULMOCARE 1.5 ARYA STARTED AT THIS TIME @ 30ML/HR VIA OG TUBE. HOB ELEVATED AT 30 DEGREES. PT TOLERATING WELL.
--- NOTE | 2020-12-26 19:00 | NUR ---
BEDSIDE REPORT RECEIVED FROM Chay HERNADEZ RN. CARE OF PT ASSUMED AT THIS TIME. Earnest HUYNH CNA ASSIGNED TO PATIENT CARE.
--- NOTE | 2020-12-26 20:15 | NUR ---
PT SEDATED, LAYING SUPINE ON AIR MATRESS IN SEMIFOWLERS POSITION. SPO2 87-88%. Rober ROCHE FOLDER HAND IN WITH PT. PERFORMS IN-LINE ET SUCTION. INCREASES FIO2 TO 65% AND PEEP INCREASED TO 8 BY FOLDER HAND. TV REMAINS AT 400. RR REMAINS AT 30/MIN. SPO2 INCREASES TO 96%. R-FEMORAL TLC INFUSING LR @ 75ML/H, PROPOFOL AT 55MCG/KG/MIN (26.4ML/H), AND LEVOPHED @ 4MCG/MIN (15ML/H). OG TUBE INFUSING PULMOCARE 1.5 @ 30ML/H. SB 50S ON MONITOR. NIBP 135/69 (102). SCDS ON. AGUILAR SECURED TO LEG WITH TUBING UNKINKED AND UNOBSTRUCTED, DRAINING DARK YELLOW URINE TO GRAVITY. AIRBORN/ CONTACT ISOLATION FOR COVID IN PLACE. B/L SOFT WRIST RESTRAINTS IN PLACE TO PROTECT ET TUBE/ OG TUBE/ AGUILAR AND CENTRAL LINE. BED LOCKED IN LOW POSITION WITH BEDRAILS UP X2.
--- NOTE | 2020-12-26 22:04 | NUR ---
AM LABS AND ABG ORDERS RECEIVED AND VERIFIED VIA Snapflow.
[2020-12-27] VITALS (22 sets, daily range): BP systolic 111–163; BP diastolic 60–82
--- NOTE | 2020-12-27 00:26 | NUR ---
RESIDUAL CHECK ON TUBE FEED IS ZERO. TUBE FEED RATE INCREASED TO 40ML/H.
--- NOTE | 2020-12-27 04:00 | NUR ---
TUBE FEED RESIDUAL CHECK RESULTS IN TOTAL OF 120ML. TF TURNED OFF.
--- NOTE | 2020-12-27 04:30 | NUR ---
PCXR AT BEDSIDE.
--- NOTE | 2020-12-27 04:44 | NUR ---
N0 BLOOD RETURN FROM [facility] TLC. Martina ENRIQUEZ SENIOR BUSINESS INTELLIGENCE ANALYST IN ROOM COLLECTING LABS PERIPHERALLY.
[2020-12-27 05:31] LABS: HEMATOCRIT 34.8 % (39.0-50.0); HEMOGLOBIN 11.2 g/dl (14.0-18.0); IMMATURE GRANULOCYTES 0.5 % (0.0-5.0); MEAN CELL VOLUME 91.8 fL CALC (80.0-100.0); MEAN CORPUSCULAR HGB 29.6 pG CALC (26.0-32.0); MEAN CORPUSCULAR HGB CONC 32.2 g/dL CAL (32.0-36.0); NEUT# 12.78 thou/uL (1.82-7.42); RED BLOOD COUNT 3.79 mill/uL (4.70-6.10); RED CELL DISTRI WIDTH 13.3 % (11.5-15.5)
[2020-12-27 06:09] LABS: ALBUMIN 2.3 g/dL (3.2-5.0); ALKALINE PHOSPHATASE 157 u/l (38-126); ANION GAP 10 (6-22 (CALC)); BILIRUBIN, TOTAL 0.6 mg/dL (0.0-1.4); BUN 31 mg/dL (8-23); BUN/CREATININE RATIO 35 (12-20 (CALC)); CARBON DIOXIDE 27 mmol/l (22-30); CHLORIDE 109 mmol/l (95-108); CREATININE 0.9 mg/dL (0.7-1.3); GFR > 60 ML/MIN (>=60 (CALC)); GFR FOR AFR.AMER. > 60 ML/MIN (>=60 (CALC)); POTASSIUM 4.2 mmol/l (3.5-5.1); SGOT/AST 25 u/l (19-48); SODIUM 141 mmol/l (137-146); TOTAL PROTEIN 5.2 g/dL (6.3-8.2)
--- NOTE | 2020-12-27 06:30 | NUR ---
AM LABS REVIEWED. PT STATUS REMAINS UNCHANGED. HEMODYNAMICS STABLE.
--- NOTE | 2020-12-27 08:00 | NUR ---
PATIENT IS ON A VENT, APPEARS COMFORTABLE AT THIS TIME. NO SIGNS OF DISSTRESS. VITALS ARE STABLE. DID HAVE A ,MOMENT OF SECRETIONS NEEDING TO BE SUCTIONED OUT, SATS DROPPED TO UPPER 80'S. DID MOVE HIS RIGHT ARM, SUCTION WAS PERFORMED BY RT, PATIENT RETURNED TO NORMAL VITALS AND APPEARS RELAXED. DIMINSIHED LUNG SOUNDS. ORAL CARE PREFORMED. OG PLACEMENT CHECKED. TUBE FEEDINGS HAVE BEEN STOPPED PER CIVIL RIGHTS INVESTIGATOR NURSE, STATED THAT HE PRODUCED A LOT OF SECRETION BUILD UP AND RESIDUAL >100 OUT. WILL ASK DOCTOR WHEN HE ARRIVES IF WE WILL CONTINUE THE FEEDINGS. ABDOMEN SOFT NON DISTENDED.HYPOACTIVE BOWEL SOUNDS. EDEMA ON ALL FOUR LIMNBS PIT 1+. STRONG PULSES. SAFETY MEASURE SIN PLACE. WILL CONTINUE TO MONITOR.
--- NOTE | 2020-12-27 08:49 | NUR ---
TITRATED MECHANICAL VENTILATIONPARAMETERS PER PT SPO2. SXN COPIOUS AMOUNT THICK, MORALES AND BLOOD TINGED SECRETIONS FROM ETT. CHANGED HME AT THIS TIME. AIR LEAK NOTED, AND 2CC OF AIR ADDED TO CUFF. PT BARB WELL. RN AND AWARE.
--- NOTE | 2020-12-27 10:00 | NUR ---
PATIENT IS SITTING UP, SEEMS COMFORTABLE AT THIS TIME. DID NEED TO INCREASE HIS SEDATION. SAFETY MEASURES IN PLACE. CALL LIGHT IN REACH. WILL CONTINUE TO MONITOR.
--- NOTE | 2020-12-27 12:00 | NUR ---
PATIENT WAS HAVING APPOX 50CC OF THICK BLOODY SPUTUM COMING OUT OF HIS MOUTH. SUCTIONED IT ALL OUT, ORAL CARE WAS PORVIDED, TEXTED DR. COX ABOUT A CULTURE AND TO HOLD BLOOD THINNERS. HELD ALL BLOOD THINNERS. STATED TO CONTINUE TO MONITOR IT.
--- NOTE | 2020-12-27 12:18 | NUR ---
NO CHNAGES AT THIS TIME. STREET CLEANER SXN COPIOUS AMOUNT, THICK MORALES AND BLOOD TINGED SECRETIONS FROM ETT. CHANGED HME AT THIS TIME. PT TO LWELL. STREET CLEANER TO MONITOR.
--- NOTE | 2020-12-27 13:52 | NUR ---
no changes at this time. pt resting comfortably. nad. industrial cafeteria manager to monitor.
--- NOTE | 2020-12-27 14:00 | NUR ---
PATIENT IS SEDATED, ON A VENT. VITALS ARE STABLE. SAFETY MEASURES IN PLACE. WILL CONTINUE TO MONITOR.
--- NOTE | 2020-12-27 14:01 | NUR ---
weaned fio2 as per pt spo2. pt nixon saenz at this time. rn aware.
--- NOTE | 2020-12-27 18:10 | NUR ---
patient is laying in bed watching tv. saftey measures in place. call light in reach. will cotninue to monitor.
--- NOTE | 2020-12-27 19:16 | NUR ---
Martina ENRIQUEZ PHLEPOTOMIST IN ROOM COLLECTING LAB WORK PERIPHERALLY.
[2020-12-27 19:40] LABS: INTERNATIONAL NORMALIZED RATIO 1.2 RATIO (0.7-1.3); PROTHROMBIN TIME 12.3 SECONDS (9.0-12.5)
--- NOTE | 2020-12-27 20:15 | NUR ---
PT SEDATED, LAYING SUPINE SEMIFOWLERS ON AIR MATTRESS. B/L SOFT WRIST RESTRAINTS IN PLACE. SCDS ON. ET TUBE 8.0 24 CM AT THE LIP. VENT SETTINGS: A/C RATE 30, PEEP 8, TV 400, FIO2 90%. SPO2 97%. SR 90S ON MONITOR. NIBP 125/66 (MAP 93). R-FEM TLC PATENT BUT W/O BLODD RETURN. INFUSING LEVOPHED AT 4MCG/MIN AND PROPOFOL AT 30MCG/KG/MIN. AGUILAR SECURED TO LEG. TUBING UNKINKED AND UNOBSTRUCTED, DRAINING DARK YELLOW SLIGHTLY HAZY URINE TO BAG GRAVITY. AIRBORN ISOLATION IN PLACE. BED LOCKED IN LOW POSITION WITH BEDRAILS UP X2.
[2020-12-28] VITALS (23 sets, daily range): BP systolic 99–147; BP diastolic 58–89
--- NOTE | 2020-12-28 00:15 | NUR ---
EXTENSIVE ORAL SUCTION AND ORAL CARE COMPLETED. ET SUCTION PERFORMED.
--- NOTE | 2020-12-28 02:31 | NUR ---
1500 ML CLEAR YELLOW URINE EMPTIED OUT OF AGUILAR BY Janice BURNHAMA.
--- NOTE | 2020-12-28 05:11 | NUR ---
Martina ENRIQUEZ ROBOTICS SOFTWARE ENGINEER IN ROOM TO DRAW AM LABS. Rober ROCHE MOTOR VEHICLE ESCORT DRIVER IN ROOM COLLECTING AM ABG.
--- NOTE | 2020-12-28 05:50 | NUR ---
INCONTINENT OF LIQUID DARK BROWN STOOL. INCONTINENCE HYGIENE PERFORMED. BARRIER CREAM APPLIED.
[2020-12-28 06:35] LABS: HEMATOCRIT 35.4 % (39.0-50.0); HEMOGLOBIN 11.2 g/dl (14.0-18.0); IMMATURE GRANULOCYTES 0.8 % (0.0-5.0); MEAN CELL VOLUME 93.2 fL CALC (80.0-100.0); MEAN CORPUSCULAR HGB 29.5 pG CALC (26.0-32.0); MEAN CORPUSCULAR HGB CONC 31.6 g/dL CAL (32.0-36.0); NEUT# 12.2 thou/uL (1.82-7.42); RED BLOOD COUNT 3.8 mill/uL (4.70-6.10); RED CELL DISTRI WIDTH 13.9 % (11.5-15.5)
[2020-12-28 07:14] LABS: ALBUMIN 2.5 g/dL (3.2-5.0); ALKALINE PHOSPHATASE 147 u/l (38-126); ANION GAP 13 (6-22 (CALC)); BILIRUBIN, TOTAL 0.8 mg/dL (0.0-1.4); BUN 28 mg/dL (8-23); BUN/CREATININE RATIO 20 (12-20 (CALC)); CARBON DIOXIDE 30 mmol/l (22-30); CHLORIDE 103 mmol/l (95-108); CREATININE 1.4 mg/dL (0.7-1.3); GFR 50 ML/MIN (>=60 (CALC)); GFR FOR AFR.AMER. > 60 ML/MIN (>=60 (CALC)); SGOT/AST 28 u/l (19-48); SODIUM 142 mmol/l (137-146); TOTAL PROTEIN 5.4 g/dL (6.3-8.2)
[2020-12-28 07:33] LABS: C-REACTIVE PROTEIN 23.1 mg/dL (0-0.9)
--- NOTE | 2020-12-28 08:00 | NUR ---
PATIENT IS ON A VENT. SEDATED. APPEARS COMFORTABLE. NO SIGNS OR DISTRESS OR DISCOMFORT. LESS SECRETIONS TODAY THAN YESTERDAY. DIMINISHED LUNG SOUNDS THROUGHOUT. HYPOACTIVE BOWEL SOUNDS. EDEMA 2+ IN ARMS/HANDS. LEGS NO EDEMA. SLIGHT TRACE EDEMA IN BILAT FEET. VITALS SIGNS ARE STABLE. STRONG PULSES. SAFETY MEASURES IN PLACE. CALL LIGHT IN PLACE. WILL COTNINUE TO MONITOR.
--- NOTE | 2020-12-28 08:11 | NUR ---
weaned fio2 as per pt spo2. pt c nad. vss. online communications specialist to monitor. rn aware.
--- NOTE | 2020-12-28 09:00 | NUR ---
SEDATION VACTION, WEANED HIM OFF SEDATION. SAFETY MEASURES IN PLACE. WILL COTNINUE TO MONITOR.
--- NOTE | 2020-12-28 09:45 | NUR ---
PATIENT WAS ABLE TO FOLLOW COMMANDS. SHOWS IMPROVEMENT. SAFETY MEASURES IN PLACE. WILL CONTINUE TO MONITOR.
--- NOTE | 2020-12-28 10:15 | NUR ---
SEDATION IS NOW RUNNING, TITRATING PER PROTOCOL. SAFETY MEASURES IN PLACE. WILL CONTINUE TO MONITOR.
--- NOTE | 2020-12-28 11:11 | NUR ---
weaned as per pt spo2. pt nixon well at this time. insulation blanket maker to monitor.
--- NOTE | 2020-12-28 12:00 | NUR ---
PATIENT RESTING IN BED COMFORTABLLY. VITALS ARE STABLE. SAFETY MEASURES IN PLACE. WILL CONTINUE TO MONITOR.
--- NOTE | 2020-12-28 14:23 | NUR ---
SPOKE TO FAMILY, CODE PROVIDED, UPDATE GIVEN REQUESTED.
--- NOTE | 2020-12-28 15:49 | NUR ---
CHANGE TROUGH TO BEFORE THE 3RD DOSE ON 12/28/20 @2030 DUE TO SCR OF 1.4
--- NOTE | 2020-12-28 16:00 | NUR ---
PATIENT RESTING IN BED. SAFETY MEASURES IN PLACE. WILL COTNINUE TO MONITOR.
--- NOTE | 2020-12-28 16:50 | NUR ---
PATIENT SIGNED THE AMA FORM. EDUCATION WAS PROVIDED TWICE, PRIOR TO HIM SIGNING. PATIENT STATED "I DO NOT CARE IM SIGNING THAT AND LEAVING" ASKED WHO WILL BE PICKING HIM UP HE STATED "IT DOESN'T MATTER ILL WALK HOME". PATIENT INFORMED THE WOOL HAT FLANGER " I'LL GIVE YOU 15 MINTUES TO GET THE DOCTOR IN HERE, I'LL BE GETTING OUT OF HERE TODAY I DONT GIVE A DAMN WHAT HE HAS TO SAY". HE RIPPED OFF HIS IV'S, BP CUFF, ETC AFTER THOSE 15 MINTUES WERE UP. EDUCATION WAS PROVIDED AGAIN AFTER HE SIGNED WELL HE STATED "DONT CARE I WANT TO GO HOME".
--- NOTE | 2020-12-28 18:00 | NUR ---
PATIENT IS RESTING COMOFRTABLE IN BED, INCREASED PROP TO 35, RESTING COMFORTABLLY IN BED NO S/S OF DISTRESS.
--- NOTE | 2020-12-28 19:46 | NUR ---
RT IN ROOM TO ADJUST FIO2 ON VENTILATOR DUE TO PT SPO2 80'S.
--- NOTE | 2020-12-28 20:20 | NUR ---
PATIENT IS ON VENTILATOR, PEEP 8, FIO2 60%, TV 400, RATE 30. SPO2 91%-93%. AFEBRILE. ST ON TELEMETRY, LOW 100'S. BP WNL. NURSE ASSESSMENT PERFORMED. OG INTACT, BLLOD NOTED TO BE DRAINING ON LIS. AGUILAR CATHETER INTACT/MARY/WITH SEDIMENT. HANDS ARE EDEMETOUS 1+ PITTING. R-FEMORAL TRIPLE LUMEN INTACT, PROPOFOL AND LR INFUSING PROPERLY. OG PLACEMENT VERIFIED VIA AUSCULTATION. FEET ELEVATED. SKIN IS DRY/WARM/INTACT. AIR MATRESS INTACT.
[2020-12-29] VITALS (23 sets, daily range): BP systolic 93–132; BP diastolic 58–74
--- NOTE | 2020-12-29 07:12 | NUR ---
S: PELON COSTELLO is a 70 M who presents with acute respiratory failure with hypoxia due to COVID-19 pneumonia. He has a history of TIA, kidney stones, CP TX, coronary artery disease, cardiac stents, and BPH. All medications in patient's chart were reviewed. O: VS: BP 101/64 mmHg, P 98 bpm, RR 30 breath/min, T 98.7 F W 100 kg, HT 69 in, Scr= 1.4 mg/dL, CrCl= 58.6 ml/min A: Blood culture is pending P: Patient is on Zosyn 4.5g IV Q6H. Vancomycin ordered for pharmacy to dose. Start Vancomycin 1g IV Q12H. Vancomycin trough is drawn before the 4th dose on 12/31/20 at 0830. Vancomycin goal trough is between 15-20 mcg/ml. Pharmacy will follow and or advise on antibiotics use as needed.
--- NOTE | 2020-12-29 08:05 | NUR ---
PATIENT IS SEDATED ON A VENT. RESTING COMOFRTABLE, NO S/S OF DISTRESS AT THIS TIME. 2MM PERRLA BILAT EYES. DIMINISHED LUNG SOUNDS THROUGHOUT. HYPOACTIVE BOWEL SOUNDS. ABDOMEN SOFT NO DISTENDED. DRAINAGE FROM OJ TUBE, DARK GREEN. PLACEMENT CHECK, GOOD. EDEMA IN BILAT HANDS 2+ PITTING. STRONG PULSES. SCD'S ARE IN PLACE. VITAL SIGNS ARE STABLE. ORAL CARE WAS PROVIDED. SAFEFY MEASURES IN PLACE. WILL CONTINUE TO MONITOR.
--- NOTE | 2020-12-29 09:00 | NUR ---
TEMP WAS 100.1, UNABLE TO GIVE TYLENOL DUE TO PARAMETERS. WILL RECHECK TEMP AT NOON.
[2020-12-29 09:03] LABS: HEMATOCRIT 33.8 % (39.0-50.0); HEMOGLOBIN 10.7 g/dl (14.0-18.0); IMMATURE GRANULOCYTES 0.7 % (0.0-5.0); MEAN CELL VOLUME 94.2 fL CALC (80.0-100.0); MEAN CORPUSCULAR HGB 29.8 pG CALC (26.0-32.0); MEAN CORPUSCULAR HGB CONC 31.7 g/dL CAL (32.0-36.0); NEUT# 12.38 thou/uL (1.82-7.42); RED BLOOD COUNT 3.59 mill/uL (4.70-6.10); RED CELL DISTRI WIDTH 14.1 % (11.5-15.5)
[2020-12-29 09:06] LABS: ALBUMIN 2.5 g/dL (3.2-5.0); BILIRUBIN, TOTAL 0.8 mg/dL (0.0-1.4); CREATININE 1.8 mg/dL (0.7-1.3); POTASSIUM 3.7 mmol/l (3.5-5.1); TOTAL PROTEIN 5.4 g/dL (6.3-8.2)
--- NOTE | 2020-12-29 10:01 | NUR ---
OFF SEDATION APPOX 0930 FOR AWAKENING TRAIL, O2 SATS STARTED TO DROP TO LOW 80'S, RESP RATE, BP, AND HEART RATE ALL INCREASED. WAS ABLE TO OPEN HIS EYES, BUT PATIENT WASN'T TOLERATING IT WELL, SEDATION PLACED BACK ON.
--- NOTE | 2020-12-29 12:00 | NUR ---
TEMP IS 101.7, TEXTED DR. WRIGHT ABOUT NEEDING ORDERS.
--- NOTE | 2020-12-29 14:00 | NUR ---
SMALL SKIN TEAR ON BOTTOM RIGHT BUTT TOCK. PURPLE/PINK DISCOLORATION AROUND RECTUM. SKIN BARRIER CREAM APPLIED. PILLOW UNDER RIGHT SIDE TO ELEVATE PRESSURE OFF THE SITE.
--- NOTE | 2020-12-29 14:00 | NUR ---
PATIENT TOLERATING TUBE FEEDING WELL. <20CC RESIDUAL. HAD A BOWEL MOVEMENT, FORM/SOFT BROWN/YELLOW. CLEANED UP, WASHED UP IN BED, BED SHEETS CHANGED.
--- NOTE | 2020-12-29 16:23 | NUR ---
PATIENT IS RESTING IN BED, TEMP IS TRENDING DOWN AFTER TYLENOL WAS GIVEN. FEEDINGS ARE BEING TOLERATED WELL AT THIS TIME. WILL CONTINUE TO MONITOR
--- NOTE | 2020-12-29 18:13 | NUR ---
PATIENT IS RESTING COMFORTABLE IN BED, NO S/S OF DISTRESS. SAFTEY MEASURES IN PLACE. CALL LIGHT IN REACH. WILL CONTINUE TO MONITOR
--- NOTE | 2020-12-29 19:10 | NUR ---
ASSESSMENT DONE SEE CHARTING MOUTH AND SKINCARE DONE PT TURNED TO LEFT SIDE MONITOR SHOWS SR TUBE FEEDING INFUSING VIA OGT RESIDUAL 50CC REFED, PLACEMENT OF OGT CHECKED BY AUSCULTATION OF AIR BOLUS
--- NOTE | 2020-12-29 20:05 | NUR ---
TUBE FEEDS INCREASED TO 40C/HR
--- NOTE | 2020-12-29 22:04 | NUR ---
NO CHANGES NOTED SX ETT FOR THICK MORALES SECRETIONS
--- NOTE | 2020-12-29 23:57 | NUR ---
TURNED SUPINE EYES CLOSEDREMAINS ON VENT TF INFUSING DIPRIVAN INFUSING
[2020-12-30] VITALS (23 sets, daily range): BP systolic 91–138; BP diastolic 51–93
--- NOTE | 2020-12-30 02:30 | NUR ---
NO CHANGES NOTED
--- NOTE | 2020-12-30 03:49 | NUR ---
RESIDUAL OF TUBE FEEDING 10CC REFED NO CHANGES NOTED
--- NOTE | 2020-12-30 04:03 | NUR ---
TUBE FEEDS INCREASED TO 50CC/HR
--- NOTE | 2020-12-30 05:45 | NUR ---
NOTED HR 160S-170S AFIB ON MONITOR LOPRESSOR 5MG IV GIVEN HR 110-120 SX ETT FOR SCANT MORALES SECRETIONS
[2020-12-30 05:56] LABS: HEMATOCRIT 33.8 % (39.0-50.0); HEMOGLOBIN 10.4 g/dl (14.0-18.0); IMMATURE GRANULOCYTES 0.8 % (0.0-5.0); MEAN CORPUSCULAR HGB 29.5 pG CALC (26.0-32.0); MEAN CORPUSCULAR HGB CONC 30.8 g/dL CAL (32.0-36.0); NEUT# 9.26 thou/uL (1.82-7.42); RED BLOOD COUNT 3.52 mill/uL (4.70-6.10); RED CELL DISTRI WIDTH 14.3 % (11.5-15.5)
--- NOTE | 2020-12-30 06:11 | NUR ---
HR BACK UP TO 168 EKG ORDERED
[2020-12-30 06:15] LABS: ALBUMIN 2.4 g/dL (3.2-5.0); CREATININE 1.5 mg/dL (0.7-1.3); POTASSIUM 3.7 mmol/l (3.5-5.1); TOTAL PROTEIN 5.3 g/dL (6.3-8.2)
[2020-12-30 06:20] LABS: BILIRUBIN, TOTAL 0.4 mg/dL (0.0-1.4)
--- NOTE | 2020-12-30 06:24 | NUR ---
DR WRIGHT CALLED AND UPDATED
--- NOTE | 2020-12-30 09:37 | NUR ---
PT SEEN SEDATED, VENTILATED, RESTS IN THE BED IN NO ACUTE DISTRESS. R GROIN TLC, OG WITH PULMOCARE FEEDINGS AT 50, AGUILAR IN PLACE. PT SEEN WITH ACCELERATED HR IN THE 140-[address] SINHA AWARE, NS 250 MG BOLUS PROVIDED AND ORDER RECEIVED FOR METOPROLOL.
--- NOTE | 2020-12-30 10:33 | NUR ---
PT CHANGED FOR STOOL INCONTINENCE, TOLERATED WELL. AREA TO COCCYX IS PURPLE IN COLOR, DRIED AREA AND REPOSITIONED IN THE BED.
--- NOTE | 2020-12-30 12:55 | NUR ---
PT HAS REQUIRED SUCTIONING WITH LAVAGE RECENTLY, GOOD OUTCOME WITH MUCUS PLUG REMOVED. PT REMAINS AT REST IN THE BED, HAS BEEN INCONTINENT OF STOOL AND CLEANED UP. DIPRIVAN INCREASED FROM 35 TO 40 FOR DEEPER SEDATION.
--- NOTE | 2020-12-30 13:09 | NUR ---
CALLED TO BEDSIDE BY RN, DUE TO PATIENT HAVING PULSE OXIMETER READING OF 81%. PT WAS SUCTIONED UTILIZING SALINE LAVAGE TO RECOVER A VERY LARGE LIGHT BROWN MUCUS PLUG. POST MUCUS PLUG, RECOVERED LARGE AMOUNT OF YELLOW BROWN SECRETIONS. 2 MINUTE O2 BOOST TO 100% WAS DELIVERED VIA THE VENT IN ORDER TO HELP PT RECOVER. PT SATS RETURNED TO 94% ON 60% FIO2.
--- NOTE | 2020-12-30 14:48 | NUR ---
PT WITH STOOL INCONTINENCE AGAIN, WATERY. NO ISSUES PT IS CLEANED.
--- NOTE | 2020-12-30 18:12 | NUR ---
AGUILAR CATHETER CHANGED OUT EXISTING CATHETER WAS NOTED TO BE OCCLUDED PER 375 ML URINE IN BLADDER. PT TOLERATED WELL, WAKING UP SLIGHTLY DURING PROCESS. BLADDER WAS DRAINED OF 350 ML URINE.
--- NOTE | 2020-12-30 19:10 | NUR ---
vent cont assisted by pt. no apparent distress. bus monitor shows sinus rhythm hr 96. rt groin tlc in place. ns infusing @ 80cchr, diprivan infusing @ 45mcg/kg/min. tube feeding cont per og-10cc residual. lam cath in place. urine yellow with sediment. bilat scds, air mattress, fall & air/contact precautions cont. turned & repositioned. requires total care for all needs.
--- NOTE | 2020-12-30 20:20 | NUR ---
pulse ox 78%. rt notified & came immediately. o2 increased per vent.
--- NOTE | 2020-12-30 21:55 | NUR ---
turned to lt side the o2 dropped to 66%. rt notified, came immedately & increased o2. returned pt to back. pulse ox increased to 92%.
[2020-12-31] VITALS (24 sets, daily range): BP systolic 83–140; BP diastolic 49–71
--- NOTE | 2020-12-31 00:01 | NUR ---
vent cont assisted by pt. no distress. cardiac monitor technician shows sinus tach hr 106.
--- NOTE | 2020-12-31 00:01 | NUR ---
vent cont assisted by pt. no distress. ivf infusing well.
--- NOTE | 2020-12-31 02:00 | NUR ---
vent cont assisted by pt. clinical research monitor shows sinus rhythm hr 98.
--- NOTE | 2020-12-31 04:00 | NUR ---
vent cont assisted by pt. no apparent distress. lam draining we..
--- NOTE | 2020-12-31 04:40 | NUR ---
xray here. pcxr obtained.
--- NOTE | 2020-12-31 04:50 | NUR ---
rt here. abgs drawn.
--- NOTE | 2020-12-31 05:10 | NUR ---
bath & bed change done.
--- NOTE | 2020-12-31 06:00 | NUR ---
lab here. blood drawn.
[2020-12-31 06:34] LABS: HEMATOCRIT 30.2 % (39.0-50.0); HEMOGLOBIN 8.9 g/dl (14.0-18.0); IMMATURE GRANULOCYTES 0.3 % (0.0-5.0); MEAN CELL VOLUME 100.3 fL CALC (80.0-100.0); MEAN CORPUSCULAR HGB 29.6 pG CALC (26.0-32.0); MEAN CORPUSCULAR HGB CONC 29.5 g/dL CAL (32.0-36.0); NEUT# 12.72 thou/uL (1.82-7.42); RED BLOOD COUNT 3.01 mill/uL (4.70-6.10); RED CELL DISTRI WIDTH 14.6 % (11.5-15.5)
[2020-12-31 07:03] LABS: CREATININE 1.7 mg/dL (0.7-1.3); POTASSIUM 3.9 mmol/l (3.5-5.1)
[2020-12-31 07:18] LABS: C-REACTIVE PROTEIN 20.2 mg/dL (0-0.9)
--- NOTE | 2020-12-31 09:41 | NUR ---
PT IS VENTED, SEDATED, RESTS IN THE BED IN NO ACUTE DISTRESS. PT SEEN BY DR SINHA THIS MORNING, WILL ATTEMPT TO REDUCE OXYGEN ABLE TODAY. PT TURNED TO LEFT SIDE FOR SKIN PRESERVATION. TUBE FEEDING FINDS NO RESIDUAL. DIPRIVAN AT 45 MKM TURNED DOWN TO 40 PER LOW BLOOD PRESSURE.
--- NOTE | 2020-12-31 13:12 | NUR ---
PT CONTINUES BEFORE, TURNED AT LEAST EVERY TWO HOURS FROM ONE SIDE TO THE OTHER. SATS HAVE ALLOWED O-2 TO BE TURNED DOWN FROM 100% TO 85%, PT DOING WELL. PT WITH MODERATE SEDATION, RESPONDS ONLY WITH STIMULUS.
--- NOTE | 2020-12-31 19:15 | NUR ---
vent cont assisted by pt. monitoring tech shows sinus rhythm hr 88. tube feeding cont per og. no residual. ivf cont to rt fem site, ns infusing @ 30cchr, diprivan cont 40mcg/kg/min. lam cath in place. urine cloudy yellow. bilat scds, air mattress, air/contact precautions cont. requires total assist with all care. turned & repositioned.
--- NOTE | 2020-12-31 22:00 | NUR ---
vent cont assisted by pt. furnace cleaner shows sinus rhythm hr 92.
[2021-01-01] VITALS (17 sets, daily range): BP systolic 96–180; BP diastolic 58–89
--- NOTE | 2021-01-01 00:01 | NUR ---
vent cont assisted by pt. no distress. turned & repositioned.
--- NOTE | 2021-01-01 02:00 | NUR ---
vent cont assisted. court monitor shows sinus rhythm hr 90.
--- NOTE | 2021-01-01 04:00 | NUR ---
vent cont assisted by pt. no distress. panel monitor shows sinus rhythm hr 92.
--- NOTE | 2021-01-01 05:00 | NUR ---
lab here. blood drawn.
--- NOTE | 2021-01-01 05:00 | NUR ---
rt here. blood drawn.
--- NOTE | 2021-01-01 05:30 | NUR ---
xray here. pcxr obtained.
[2021-01-01 06:06] LABS: HEMATOCRIT 28.7 % (39.0-50.0); HEMOGLOBIN 8.4 g/dl (14.0-18.0); IMMATURE GRANULOCYTES 0.7 % (0.0-5.0); MEAN CELL VOLUME 101.1 fL CALC (80.0-100.0); MEAN CORPUSCULAR HGB 29.6 pG CALC (26.0-32.0); MEAN CORPUSCULAR HGB CONC 29.3 g/dL CAL (32.0-36.0); NEUT# 7.37 thou/uL (1.82-7.42); RED BLOOD COUNT 2.84 mill/uL (4.70-6.10); RED CELL DISTRI WIDTH 14.7 % (11.5-15.5)
[2021-01-01 06:35] LABS: CREATININE 2.5 mg/dL (0.7-1.3); POTASSIUM 3.8 mmol/l (3.5-5.1)
[2021-01-01 06:49] LABS: MAGNESIUM 2.9 mg/dL (1.6-2.3)
--- NOTE | 2021-01-01 09:00 | NUR ---
PT VENTED, SEDATED, RESTING IN THE BED IN NO ACUTE DISTRESS. DR SINHA HAS ROUNDED, WILL WEAN SEDATION FOR BREATHING TRIAL. PT CLEANED UP FOR STOOL INCONTINENCE.
--- NOTE | 2021-01-01 12:18 | NUR ---
PT WITH DIPRIVAN TITRATED DOWN TO 5 MKM, PT LIFTS EYEBROWS BUT DOES NOT SQUEEZE HANDS WHEN REQUESTED. BREATHING TRIAL SHOWS PT ABLE TO BREATHE, ALTHOUGH HE IS STILL NEEDING 60% FIO-2.
--- NOTE | 2021-01-01 13:07 | NUR ---
O2 SAT DROPPED TO 87. PLACED BACK ON PREVIOUS SETTINGS.
--- NOTE | 2021-01-01 15:48 | NUR ---
PT HAS BEEN CLEANED UP AGAIN AND POSITIONED ON HIS LEFT SIDE. PT DID WELL WITH SEDATION VACATION, TRIED TO OPEN HIS EYES BUT DID NOT MOVE EXTREMITIES. PT WAS ABLE TO BREATHE MINIMALLY ON HIS OWN.
--- NOTE | 2021-01-01 18:09 | NUR ---
PT BACK ON DIPRIVAN AT 40 MKM, SEEN RESTING WELL IN THE BED IN NO ACUTE DISTRESS.
--- NOTE | 2021-01-01 20:40 | NUR ---
PATIENT LAYS WITH HOB 30 DEGREES. IS ON VENTILATOR: AC, PEEP 8, RATE 30, TV 400, FIO2 60%. SPO2 97%. OG INTACT, NEW TUBE FEEDING HUNG, PULMOCARE AT 50 ML/HR, PLACEMENT VERIFIED VIA AUSCULTATION, NO RESIDUAL NOTED. MEDICATIONS GIVEN THROUGH OG, NO DIFFICULTY FLUSHING. MOUTH CARE PROVIDED, NO [PHLEGM FROM ET, MODERATE SECRETIONS FROM MOUTH SUCTIONED. R-FEMORAL TRIPLE LUMEN INTACT, FLUSHES PROPERLY, RETURNS BLOOD FROM ONE LUMEN. NS INFUSING PROPERLY. NURSE ASSESSMENT PERFORMED. SKIN IS WARM/DRY. 2+ PITTING EDEMA ON HANDS. NO EDEMA TO FEET. AGUILAR CATHETER INTACT, DRAINS MARY/CLOUDY URINE. SR ON TELEMETRY, HR 90'S, SBP 140'S. SCD'S INTACT. REPOSITIONED TO RIGHT SIDE. NO BM NOTED. ARMS/FEET ELEVATED. WILL CONTINUE TO MONITOR.
[2021-01-02] VITALS (22 sets, daily range): BP systolic 98–160; BP diastolic 55–70
--- NOTE | 2021-01-02 00:24 | NUR ---
RT ENZO IN ROOM
--- NOTE | 2021-01-02 00:36 | NUR ---
RT ENZO REPORTS CHANGES TO VENT SETTINGS, PEEP 10, FIO2 80% DUE TO PATIENT DESATTING. RT PERFORMED LAVAGE.
--- NOTE | 2021-01-02 00:45 | NUR ---
PATIENT REPOSITIONED. NO BM NOTED. NO SUCTIONING DUE TO RT SUCTIONED PATIENT. MOUTH CARE PROVIDED. HOB AT 30 DGEREES, SPO2 96%.
--- NOTE | 2021-01-02 03:35 | NUR ---
PATIENT WAS WASHED UP, REPOSITIONED, PULLED UP, HOB 30 DEGREES. LINENS CHANGED. TUBE FEEDING ON HOLD WHILE WASHING UP. SCD'S INTACT, ALL EXTREMETIES ELEVATED. MOUTH CARE PROVIDED, MODERATE AMOUNT OF SALIVA SUCTIONED FROM MOUTH.
--- NOTE | 2021-01-02 05:13 | NUR ---
RT ENZO IN ROOM TO OBTAIN ABG.
--- NOTE | 2021-01-02 06:12 | NUR ---
SKEIN MERCERIZING MACHINE OPERATOR TO OBTAIN CXR.
[2021-01-02 06:32] LABS: ALBUMIN 2.1 g/dL (3.2-5.0); MAGNESIUM 2.8 mg/dL (1.6-2.3); POTASSIUM 3.9 mmol/l (3.5-5.1)
--- NOTE | 2021-01-02 06:33 | NUR ---
PT RECIEVED ON ALL DOCUMENTED PARAMTERS. NO ACUTE DISTRESS NOTED AT HTIS TIME. SUPERVISORY IT SPECIALIST TO MONITOR.
[2021-01-02 06:56] LABS: HEMATOCRIT 25.5 % (39.0-50.0); HEMOGLOBIN 7.6 g/dl (14.0-18.0); IMMATURE GRANULOCYTES 0.9 % (0.0-5.0); MEAN CORPUSCULAR HGB 29.8 pG CALC (26.0-32.0); MEAN CORPUSCULAR HGB CONC 29.8 g/dL CAL (32.0-36.0); NEUT# 7.17 thou/uL (1.82-7.42); RED BLOOD COUNT 2.55 mill/uL (4.70-6.10)
[2021-01-02 07:08] LABS: C-REACTIVE PROTEIN 14.9 mg/dL (0-0.9)
--- NOTE | 2021-01-02 09:26 | NUR ---
weaned peep as per pt spo2. nixon well at this time. applications scientist to monitor.
--- NOTE | 2021-01-02 11:52 | NUR ---
PT SEEN BY DR SINHA THIS MORNING. PT TO RECEIVE BLOOD TRANSFUSION OF ONE UNIT PRBCs PER DROPPING HGB. FAMILY CALLED AND THEY PROVIDED CONSENT ON THE PHONE. FAMILY IS UNREALISTICALLY OPTIMISTIC ABOUT PT'S SURVIVAL.
--- NOTE | 2021-01-02 12:20 | NUR ---
WEANED PARAMETERS TIL. COMPENSATION AND BENEFITS ADMINISTRATOR TO MONBITOR.
--- NOTE | 2021-01-02 13:29 | NUR ---
BLOOD TRANSFUSION IN PROGRESS, PT TOLERATING WELL. FAMILY CALLED AGAIN, DAUGHTER IN LAW INCLUDED THIS TIME, QUESTIONS ANSWERED ABLE. PT REMAINS AT REST IN THE BED, VENTED AND SEDATED.
--- NOTE | 2021-01-02 16:05 | NUR ---
PT SUCTIONED AND REPOSITIONED, AT REST IN THE BED IN NO ACUTE DISTRESS. BLOOD TRANSFUSION COMPLETED WITHOUT INCIDENT.
--- NOTE | 2021-01-02 17:44 | NUR ---
TITRATED PER SPO2.
--- NOTE | 2021-01-02 18:09 | NUR ---
DAUGHTER IN LAW AGATA GEORGE LEAVES [phone] NUMBER WHERE SHE CAN BE REACHED. SHE IS MORE MEDICALLY INCLINED THAN HER AND WILL BE ABLE TO EXPLAIN UPDATES TO HER AND ALSO PT'S .
--- NOTE | 2021-01-02 19:25 | NUR ---
patient remains on ventilator, vent settings: ac, rate 30, fio2 80%, peep 10, tidal volume 400, size 8, 26 cm at the lip. begins to cough with repositioning and suctioning through et tube. spo2 93%. nurse assessment performed. og tube intact, placement verified via auscultation, no residual, feeding tube at 50 ml/hr. mouth care provided, moderate amount of saliva suctioned from mouth, none from et tube. r-femoral triple lumen intact, ns and propofol infusing properly. hr low 100's with movement. sbp 130's. had a small loose/green bm, was washed up, repositioned to r-side. all extremeties elevated with pillows. scd's removed and replaced. lam catheter intact, drains radha/cloudy urine. will continue to monitor.
--- NOTE | 2021-01-02 21:30 | NUR ---
new tube feeding bags infusing. about 1 ml residual noted. mouth care provided, suctioning provided.
--- NOTE | 2021-01-02 22:45 | NUR ---
PATIENT WAS REPOSITIONED, NO ACUTE DISTRESS SHOWN. HOB 30 DEGREES.
[2021-01-03] VITALS (15 sets, daily range): BP systolic 111–147; BP diastolic 57–80
--- NOTE | 2021-01-03 03:00 | NUR ---
PATIENT WAS WASHED UP, REPOSITIONED, LINENS CHANGED. PULLED UP, MOUTH CARE PROVIDED. DID HAVE A SMALL LOOSE/BROWN/GREEN BM. BARRIER OITMENT APPLIED TO BUTTOCKS WHICH IS HAS OPEN AREAS/PURPLE. HOB 30 DEGREES. HR 90'S, SR. BP WNL. SPO2 95%. SCD'S INTACT. ALL EXTREMETIES ELEVATED WITH PILLOW. REPOSITIONED TO R-SIDE.
--- NOTE | 2021-01-03 06:00 | NUR ---
INSULIN GIVEN PER ACCUCHECK. PATIENT ET WAS SUCTIONED HAS MODERATE THICK/MORALES PHLEGM.
--- NOTE | 2021-01-03 06:00 | NUR ---
PATIENT WAS REPOSITIONED. NO ACUTE DISTRESS SHOWN.
[2021-01-03 06:03] LABS: HEMATOCRIT 29.9 % (39.0-50.0); HEMOGLOBIN 9.1 g/dl (14.0-18.0); IMMATURE GRANULOCYTES 1.1 % (0.0-5.0); MEAN CELL VOLUME 98.4 fL CALC (80.0-100.0); MEAN CORPUSCULAR HGB 29.9 pG CALC (26.0-32.0); MEAN CORPUSCULAR HGB CONC 30.4 g/dL CAL (32.0-36.0); NEUT# 7.65 thou/uL (1.82-7.42); RED BLOOD COUNT 3.04 mill/uL (4.70-6.10); RED CELL DISTRI WIDTH 14.7 % (11.5-15.5)
[2021-01-03 06:16] LABS: ALBUMIN 2.2 g/dL (3.2-5.0); CREATININE 2.9 mg/dL (0.7-1.3); POTASSIUM 4.4 mmol/l (3.5-5.1)
--- NOTE | 2021-01-03 07:13 | NUR ---
pt recieved on all documented paramters. weaned fio2 as per pt spo2. nixon well at this time. sxn x 2. changed hme. wood room hand to monitor.
--- NOTE | 2021-01-03 08:00 | NUR ---
PATIENT IS VENTED, STARTED SEDATION VACATION AROUND 0700. APPOX 0800 PATIENT VITALS STARTED TO INCREASE. HE DID MAINTAIN EYE CONTACT WHEN TALKING TO HIM. WASNT ABLE TO SQUEEZE MY HANDS. HE NODDED AT MY QUESTIONS. SEDATION IS PLACED BACK ON SPOKE TO DOCTOR ABOUT IT AND HE STATED I CAN TAKE HIM OFF SEDATION LATER TODAY AND SEE HOW HE DOES. PERRLA 3MM. SOFT AND DISTENDED ABDOMEN. ACTIVE BOWEL SOUNDS. OJ PLACEMENT IS GOOD. EDEMA IN LOWER ARMS AND HANDS, ANKLES PITTING 1+. STRONG PULSES. SMALL SKIN TEAR WITH SCAB OVER TOP LIP. DOES HAVE OPEN AREAS ON HIS BOTTOM, BLANCHABLE/REDISH PURPLE. PICTURES ARE IN CHART. SAFETY MEASURES IN PLACE. WILL CONTINUE TO MONITOR.
--- NOTE | 2021-01-03 10:53 | NUR ---
weaned as per spo2. pt nixon well at this time. orthopedically impaired teacher to monitor.
--- NOTE | 2021-01-03 12:00 | NUR ---
PATIENT IS RESTING COMFORTABLE IN BED. VENTED. SEDATED. SAFETY MEASURES IN PLACE. WILL CONTINUE TO MONITOR.
--- NOTE | 2021-01-03 14:00 | NUR ---
PATIENT VENTED, COMFORTABLE. SAFETY MEASURES IN PLACE. WILL COTNINUE TO MONITOR.
--- NOTE | 2021-01-03 16:00 | NUR ---
PATIENT IS VENTED. SAFETY MEASURES IN PLACE. WILL CONTINUE TO MONITOR.
--- NOTE | 2021-01-03 18:00 | NUR ---
PATIENT IS DOING WELL. SEDATION CONTINUES. VENTED. SAFETY MEASURES IN PLACE. WILL CONTINUE TO MONITOR.
--- NOTE | 2021-01-03 19:10 | NUR ---
vent cont assisted by pt. monitoring coordinator shows sinus tach hr 102. tube feeding cont-5cc residual. propofol cont @ 35mcg/kg/min, ns infusing @ 50cchr per rt fem site. edema conts to bilat arms. exts elevated on pillow. bilat scds, air mattress, fall, air/contact precautions cont. turned & repositioned. requires total care for all needs.
--- NOTE | 2021-01-03 22:00 | NUR ---
vent cont assisted by pt. gambling monitor shows sinus tach hr 100.
[2021-01-04] VITALS (22 sets, daily range): BP systolic 111–163; BP diastolic 61–80
--- NOTE | 2021-01-04 00:01 | NUR ---
vent cont assisted by pt. mottle lay up operator shows sinus rhythm hr 98.
--- NOTE | 2021-01-04 02:00 | NUR ---
resting quietly. vent cont. no distress.
--- NOTE | 2021-01-04 04:00 | NUR ---
vent cont assisted by pt. lunchroom monitor shows sinus tach hr 100.
--- NOTE | 2021-01-04 05:00 | NUR ---
xray here. pcxr obtained. bath & linen change done.
[2021-01-04 05:39] LABS: HEMATOCRIT 30.6 % (39.0-50.0); HEMOGLOBIN 9.2 g/dl (14.0-18.0); IMMATURE GRANULOCYTES 1.6 % (0.0-5.0); MEAN CELL VOLUME 99.7 fL CALC (80.0-100.0); MEAN CORPUSCULAR HGB CONC 30.1 g/dL CAL (32.0-36.0); NEUT# 9.42 thou/uL (1.82-7.42); RED BLOOD COUNT 3.07 mill/uL (4.70-6.10); RED CELL DISTRI WIDTH 14.6 % (11.5-15.5)
--- NOTE | 2021-01-04 05:45 | NUR ---
blood drawn & sent to lab.
[2021-01-04 05:48] LABS: ALBUMIN 2.3 g/dL (3.2-5.0); CREATININE 2.9 mg/dL (0.7-1.3)
[2021-01-04 06:00] LABS: C-REACTIVE PROTEIN 15.1 mg/dL (0-0.9)
[2021-01-04 06:01] LABS: POTASSIUM 5.2 mmol/l (3.5-5.1)
--- NOTE | 2021-01-04 08:00 | NUR ---
PATIENT IS VENTED, SEDATION WAS TURNED OFF FOR SEDATION VACATION AWAKENING TRAIL. WILL COTROBERTNUE TO MONITOR. 3MM PERRLA BILAT EYES. TUBE FEEDINGS CONTINUED. 0 RESIDUAL WHEN CHECKED. PLACEMENT IS GOOD. COARSE/DIMINSHED LUNG SOUNDS. ACTIVE BOWEL SOUNDS. SOFT ABDOMEN. EDEMA ON BILAT HANDS AND ARMS. STRONG PULSES. SUCTIONED, ORAL CARE PROVIDED. REPOSITIONED. NO RESTRAINTS NEEDED. SCD'S ARE ON AND WORKING. SAFETY MEASURES IN PLACE. WILL CONINTUE TO MONITOR.
--- NOTE | 2021-01-04 09:18 | NUR ---
changed hme, sxn pt x 2 and changed in line sxn catheter. pt to lwell. nad. vss. rt to monitor.
--- NOTE | 2021-01-04 10:00 | NUR ---
PATIENT IS STILL OFF SEDATION, NO REACTION TO MY VOICE, WILL COTNINUE TO MONITOR.
--- NOTE | 2021-01-04 12:00 | NUR ---
PATIENT IS STILL OFF SEDATION. NO RESPONSE WHEN CALLING HIS NAME. SAFETY MEASURES IN PLACE. WILL CONTINUE TO MONITOR.
--- NOTE | 2021-01-04 12:29 | NUR ---
sxn pt x2, changed hme again and loredo. weaned fio2 as per pt spo2. nixon well at this time. fish technologist to monitor.
--- NOTE | 2021-01-04 15:50 | NUR ---
PATIENT GRAND DAUGHTER AHSAN CALLED, CODE GIVEN, REQUESTED UPDATE. GIVEN UPDATE, WANTED TO TALK TO PATIENT ON THE PORTABLE PHONE, PATIENT OPENED HIS EYES. HE IS OFF SEDATION STILL. NOT MUCH MOVEMENT, MOVES HEAD SIDE TO SIDE AT TIMES, SOMETIMES HE OPENS HIS EYES WHEN SAYING HIS NAME.
--- NOTE | 2021-01-04 16:00 | NUR ---
PATIENT IS RESTING IN BED. SEDATION STILL OFF. WILL CONTINUE TO MONITOR.
--- NOTE | 2021-01-04 17:13 | NUR ---
WEANED FIO2 PER PT SPO2. BARB WELL AT THIS TIME. RN AWARE. HEAVY LINE TECHNICIAN TO MONITOR.
--- NOTE | 2021-01-04 18:09 | NUR ---
SPOKE TO DAUGHTER IN LAW AND SON PELON, CODE WAS GIVEN. UPDATE WAS GIVEN.
--- NOTE | 2021-01-04 19:30 | NUR ---
vent cont assisted by pt. bus monitor shows sinus tach hr 110. tube feeding conts per og-no residual. rt fem site in place, ns infusing @ 50cchr, diprivan infusing @ 35mcg/kg/min. lam cath in place. urine cloudy yellow. bilat scds, air mattress, air/contact precautions cont. turned & repositioned. requires total care for all needs.
--- NOTE | 2021-01-04 22:00 | NUR ---
vent cont assisted by pt. color television console monitor shows sinus rhythm pvcd hr 96.
[2021-01-05] VITALS (18 sets, daily range): BP systolic 102–167; BP diastolic 56–82
--- NOTE | 2021-01-05 00:01 | NUR ---
eyes closed. no distress. quality assurance monitor shows sinus tach hr 100.
--- NOTE | 2021-01-05 03:00 | NUR ---
bath given & linen changed.
--- NOTE | 2021-01-05 04:00 | NUR ---
moved to bed #2.
--- NOTE | 2021-01-05 05:00 | NUR ---
xray here. pcxr obtained.
--- NOTE | 2021-01-05 05:16 | NUR ---
blood drawn & sent to lab.
[2021-01-05 05:40] LABS: HEMOGLOBIN 8.6 g/dl (14.0-18.0); IMMATURE GRANULOCYTES 1.4 % (0.0-5.0); MEAN CELL VOLUME 100.7 fL CALC (80.0-100.0); MEAN CORPUSCULAR HGB 29.9 pG CALC (26.0-32.0); MEAN CORPUSCULAR HGB CONC 29.7 g/dL CAL (32.0-36.0); NEUT# 9.76 thou/uL (1.82-7.42); RED BLOOD COUNT 2.88 mill/uL (4.70-6.10); RED CELL DISTRI WIDTH 14.4 % (11.5-15.5)
[2021-01-05 05:56] LABS: CREATININE 3.2 mg/dL (0.7-1.3); POTASSIUM 5.1 mmol/l (3.5-5.1)
--- NOTE | 2021-01-05 06:15 | NUR ---
incont of mod amt brown liquid stool. pt cleansed.
--- NOTE | 2021-01-05 08:00 | NUR ---
PATIENT IS VENTED, TURNED OFF SEDATION TO START AWAKENING TRAIL. PERRLA 2MM BILAT EYES. DRY CRACKED LIPS, SCAB ON UPPER LIP, ORAL CARE PROVIDED. HEART SOUNDS NORMAL BUT SLIGHTLY TACHY. DIMINISHED LUNG SOUNDS. 5ML RESIDUAL FROM TUBE FEEDING. ACTIVE BOWEL SOUNDS. EDEMA ON BILAT ARMS AND HANDS. ABDOMEN SOFT NON DISTENDED. EDEMA IS TRACE AROUND ANKLES. STRONG PULSES. SAFETY MEASURES IN PLACE. WILL CONTINUE TO MONITOR.
--- NOTE | 2021-01-05 09:14 | NUR ---
HME CHANGED, PT SUCTIONED X 2. NOTED RESISTANCE AT THE END OF ETT SO SALINE LAVAGE PERFORMED. ETT NOW MORE PATENT. RECOVERED SEVERAL SMALL MORALES MUCUS PLUGS.
--- NOTE | 2021-01-05 10:00 | NUR ---
OFFF SEDATION, UNABLE TO FOLLOW COMMANDS. WILL CONTINUE TO ASSESS.
--- NOTE | 2021-01-05 12:00 | NUR ---
PATIENT IS STILL NOT FOLLOWING COMMANDS, CONTINUES TO BE OFF SEDATION. CAN OPEN HIS EYES TO THE SOUND OF MY VOICE BUT UNABLE TO MAINTAIN EYE CONTACT.
--- NOTE | 2021-01-05 14:00 | NUR ---
PATIENT UNBALE TO FOLLOW COMMANDS, AWAKENING TRAILS CONTINUES, SEDATION STILL OFF.
--- NOTE | 2021-01-05 15:59 | NUR ---
PATENT CONTINUES TO BE OFF SEDATION, DOES OPEN HIS EYES BRIEFLY THEN GOES BACK TO SLEEP. WILL CONTINUE TO MONITOR.
--- NOTE | 2021-01-05 16:00 | NUR ---
PATIENT IS RESTING IN BED OFF SEDATION, DOESNT FOLLOW COMMANDS, WILL CONTINUE TO MONITOR.
--- NOTE | 2021-01-05 17:33 | NUR ---
SEDATION PLACED BACK ON, TITRATED UP TO 35 PER PROTOCOL. PATIENT IS STABLE. WASNT FOLLOWING ANY COMMANDS. WILL CONTINUE TO MONITOR.
--- NOTE | 2021-01-05 18:11 | NUR ---
PATIENT IS ON SEDATION, HEART RATE STILL ELEVATED EVEN AFTER GIVING PRN LOPRESSOR. BREATHING WELL, O2 SATS LOW 90'S. SAFETY MEASURES IN PLACE. WILL CONTINUE TO MONITOR.
--- NOTE | 2021-01-05 20:15 | NUR ---
temp 102.7 ax. tylenol supp inserted. ice bags applied. sheet removed. vent cont assisted by pt. library monitor shows sinus tach hr 114. tube feeding cont to og-no residual. rt fem site conts d5w infusing @ 50cchr. diprivan infusing @ 35mcg/kg/min. lam cath in place. urine cloudy yellow. air mattress, bilat scds, fall & air/contact precautions cont. turned & repositioned. requires total care for all needs.
--- NOTE | 2021-01-05 22:00 | NUR ---
t 101.6 ax. ice bags cont. cool compress applied. sheet remains off pt.
[2021-01-06] VITALS (20 sets, daily range): BP systolic 93–126; BP diastolic 52–68
--- NOTE | 2021-01-06 00:05 | NUR ---
t 99.2 ax. turned & repositioned.
--- NOTE | 2021-01-06 03:30 | NUR ---
bath & bed change done. incont of stool x2 during bath. dignishield placed. blood drawn & sent to lab.
--- NOTE | 2021-01-06 05:00 | NUR ---
xray here. pcxr obtained.
[2021-01-06 05:37] LABS: ALBUMIN 2.3 g/dL (3.2-5.0)
[2021-01-06 05:43] LABS: CREATININE 3.8 mg/dL (0.7-1.3)
[2021-01-06 05:49] LABS: POTASSIUM 5.9 mmol/l (3.5-5.1)
--- NOTE | 2021-01-06 06:45 | NUR ---
REPORT RECEIVED FROM RN PROGRESSIVE CARE. CARE ASSUMED.
--- NOTE | 2021-01-06 07:20 | NUR ---
PATIENT RESTING IN BED INTUBATED AND SEDATED AT THIS TIME. IV PATENT X1. VSS ON MONITOR. SHIFT ASSESSMENT COMPLETED AT THIS TIME. WILL CONTINUE TO MONTIOR.
--- NOTE | 2021-01-06 08:30 | NUR ---
DR WRIGHT AT [facility] AT THIS TIME. PLAN OF CARE DISCUSSED. NEW ORDERS RECEIVED.
[2021-01-06 09:18] LABS: ALBUMIN 2.3 g/dL (3.2-5.0); BILIRUBIN, TOTAL 0.3 mg/dL (0.0-1.4); TOTAL PROTEIN 4.9 g/dL (6.3-8.2)
[2021-01-06 09:25] LABS: CREATININE 3.7 mg/dL (0.7-1.3)
[2021-01-06 09:46] LABS: HEMATOCRIT 27.9 % (39.0-50.0); HEMOGLOBIN 8.5 g/dl (14.0-18.0); IMMATURE GRANULOCYTES 0.4 % (0.0-5.0); MEAN CELL VOLUME 98.2 fL CALC (80.0-100.0); MEAN CORPUSCULAR HGB 29.9 pG CALC (26.0-32.0); MEAN CORPUSCULAR HGB CONC 30.5 g/dL CAL (32.0-36.0); NEUT# 11.37 thou/uL (1.82-7.42); RED BLOOD COUNT 2.84 mill/uL (4.70-6.10); RED CELL DISTRI WIDTH 14.5 % (11.5-15.5)
--- NOTE | 2021-01-06 10:00 | NUR ---
PATIENT RESTING IN BED INTUBATED AND SEDATED AT THIS TIME. VSS ON MONITOR. WILL CONTINUE TO MONITOR.
--- NOTE | 2021-01-06 10:26 | NUR ---
S: PELON COSTELLO is a 71 M who presents with Shortness of breath. He has a history of [id number] artery disease, kidney stone,TIA, benign prostatic hypertrophy. All medications in patient's chart were reviewed. O: VS: BP 104/6 mmHg, P 93bpm, RR 30bpm ,T 96.8F W 92kg, HT 69 inches, Scr= 3.8 mg/dL,CrCl= 23.9 ml/min A: Blood culture is pending. P: Patient is on ceffepime 1g IV Q12H and Flagyl 500mg IV Q8H. Vancomycin ordered for pharmacy to dose. Restart Vancomycin 1250 IV Q36H. Vancomycin trough is drawn before the 3rd dose on 01/09/21 at 1130. Vancomycin goal trough is between 15-20 mcg/ml. Pharmacy will follow and or advise on antibiotics use as needed.
--- NOTE | 2021-01-06 12:00 | NUR ---
PATIENT RESTING IN BED INTUBATED AND SEDATED AT THIS TIME. VSS ON MONITOR. WILL CONTINUE TO MONITOR.
--- NOTE | 2021-01-06 14:09 | NUR ---
1400 MEDICATIONS GIVEN, DIPIRVAN DECREASED BY HALF FOR SEDATION VACATION
--- NOTE | 2021-01-06 14:19 | NUR ---
PROVIDED MOUTH CARE. CHECKED RESIDUAL FOR FEEDING TUBE, 30 ML. PUMP TURNED OFF WILL RECHECK IN AN HR. ET TUBE SUCTIONED, GREEN THICK SECRETIONS NOTED.
--- NOTE | 2021-01-06 15:10 | NUR ---
DIPIRVAN TITRATED FROM 17.5 TO 10 MCG/KG/MIN
--- NOTE | 2021-01-06 15:30 | NUR ---
TUBE FEEDING RESIDUAL CHECKED, 30 ML
--- NOTE | 2021-01-06 16:37 | NUR ---
SISTER IN LAW SITA MORAN PHONED FOR UPDATE. REQUESTED THAT AGGRESSIVE CARE AND TRANSFER BE INTIATED. EXPALINED THAT ALL WAS IN THE PROCESS. HOWEVER THERE HAVE BEEN NO COVID BEDS AT HOSPITALS AND CASE MANAGEMENT IS WORKING ON TRANSFERRING THE PATIENT. AND WOULD LET DR WRIGHT KNOW THAT FAMILY WANTS TO BE AGGRESSIVE. MRS MORAN STATES THAT PATIENTS IS HARD OF HEARING AND SHE WOULD BE MAKING ALL MEDICAL DECISIONS FROM HERE OUT. I EXPLAINED IN DETAIL THAT WE WOULD NEED MEDICAL POWER OF PNEUMATIC TOOL REPAIRER PAPERWORK. MRS MORAN THEN STATES THAT PATIENTS WAS SIGNING OVER POA TO HER.I EXPLAINED THAT MRS COSTELLO WAS NOT POA WAS NEXT OF KIN ON CHART AND LEGALLY WAS MAKING THE DECISIONS. AND MRS COSTELLO HAD NOT GIVEN US ANY PERMISSION FOR MRS MORAN TO MAKE MEDICAL DECISIONS AND WE WOULD STILL NEED TO SPEAK WITH MRS COSTELLO ON ALL MEDICAL DECISIONS. MRS MORAN ASKED HOW SHE COULD GET US POA PAPERWORK. FAX NUMBER PROVIDED. MRS MORAN THEN QUESTIONED FOR THIS NURSES FULL NAME I EXPLAINED I DID NOT NEED TO GIVE THAT SHE STATES THAT I NEED TO BE IN HER POA PAPERWORK. I EXPLAINED I DID NOT FEEL COMFORTABLE GIVING MY LAST NAME AND WOULD NOT PROVIDE THAT. MS MORAN WAS NOT HAPPY WITH THAT ANSWER STATES HER IS AN PNEUMATIC TOOL REPAIRER AND WOULD BE IN CONTACT. I STATED HAVE A NICE DAY AND ENDED PHONE CALL. AT 1900 GRANDDAUGHTER PHONED AND STATED THAT THIS NURSE WAS NO LONGER TO TAKE CARE OF PATIENT AND THAT THIS NURSE IS FORCING PATIENT TO BECOME A DNR AND THAT HER AUNT SITA HAD CALLED AND INFORMED THE FAMILY OF SUCH. Zelda VEGA EXPLAINED THAT THE PATIENT IS SEDATED AND INTUBATED AND IS NOT CAPABLE OF SIGNING A DNR NOR COULD WE FORCE HIM TO SIGNING. THIS NURSE NOTIFIED SEWER HEAD Rosa WILKINSON AND RISK MANAGEMENT MARLEN GRIFFITH. FROM HERE OUT NURSING IS TO ONLY SPEAK WITH MRS COSTELLO
--- NOTE | 2021-01-06 17:01 | NUR ---
YOVANA TURNED OFF AT 1700
--- NOTE | 2021-01-06 17:25 | NUR ---
TUBE FEEDING RESUMED. NO TUBE FEEDING RESIDUAL WHEN CHECKED
--- NOTE | 2021-01-06 18:24 | NUR ---
PATIENT RESTING IN BED INTUBATED AND SEDATE AT THIS TIME. VSS ON MONITOR. WILL CONTINUE TO MONITOR
--- NOTE | 2021-01-06 19:50 | NUR ---
patient lays with hob 30 degrees. is on ventilator, settings: peep 10, rate 30, tidal volume 450, fio2 100%, et size 8, and 26 cm at the lip. nurse assessment performed. does have 2+ pitting edema to bilat extremeties, nonpitting ankle edema. does guard or move head when checking pupils. og tube intact, placement verified via ausculation, feeding rate restarted at 50 ml/hr. medications flush through tube properly. mouth care provided, mouth suctioned, moderate saliva noted, no phlegm from et. was repositioned to r-side. all extremeties elevated with pillows. scd's removed and replaced. lam catheter intact, drains radha/coudy/with sediment. rectal tube intact, drains watery dark brown stool. r-femoral triple lumen central line intact, flushes properly and returns blood from white lumen. sinus tachycardia, hr 103 bpm. spo2 96%, no acute distress shown.
--- NOTE | 2021-01-06 20:50 | NUR ---
called and spoke to patient's , alvin garcia for consent for tracheostomy tube and percutaneous endoscopic gastrostomy tube. consents and was verified by second witness amy guallpa. explained "the doctor" had spoken to her about it.
--- NOTE | 2021-01-06 22:00 | NUR ---
PATIENT WAS REPOSITIONED. MOUTH CARE, SUCTIONING PROVIDED. DOES HAVE SALIVA/MODERATE AMOUNT. NO ACUTE DISTRESS SHOWN.
--- NOTE | 2021-01-06 23:12 | NUR ---
HEATHER MORAN CALLED HERE, REPORTS HE IS THE FAMILY'S JOB HONER, AND WANTS TO EXPRESS HIS "CONCERN" ABOUT HOW HIS WAS SPOKEN TO AND THAN THE , WHO IS THE PATIENT'S SISTER IN LAW, SPEAKS ON THE PHONE AND STATES, " I JUST WANT TO ADVOCATE FOR THE PATIENT AND WE WILL NOT LET ANY EMPLOYEE COHERCE HIM TO BECOME A DNR." I EXPLAINED I WILL NOT GIVE ANY INFORMATION ABOUT THE PATIENT, ONLY TO HIS AND I WILL HAVE RISK MANAGEMENT CALL THEM TOMORROW REGARDING THIS MATTER.
[2021-01-07] VITALS (27 sets, daily range): BP systolic 84–157; BP diastolic 53–84
--- NOTE | 2021-01-07 | NUR ---
PATIENT WAS REPOSITIONED. NO ACUTE DISTRESS SHOWN. MOUTH CARE,SUCTIONING PROVIDED.
--- NOTE | 2021-01-07 02:00 | NUR ---
PATIENT WAS REPOSITIONED. MOUTH CARE, SUCTIONING PROVIDED.
--- NOTE | 2021-01-07 04:01 | NUR ---
PATIENT WAS DESATTING TO 80'S. BLOOD PRESSURE 80'S SYSTOLIC. PATIENT IS DIAPHORETIC. TEMP 99.2 DEGREES F. BLOOD SUGAR CHECKED 200 MG/DL. PATIENT WAS REPOSITIONED TO HIS BACK. SUCTIONED. VENT PIECE TO TUBIG WAS CHANGED. PROVIDED LAVAGE. SPO2 INCREASING TO 90'S. BP 90'S SYSTOLIC. WILL CONTINUE TO MONITOR.
--- NOTE | 2021-01-07 06:00 | NUR ---
PATIENT WAS GIVEN COMPLETE BED BATHE. PULLED UP, REPOSITIONED. MOTTLING NOTED TO BILAT KNEES. SR/ST , HR 90'S TO LOW 100'S, SPO2 97%. NO ACUTE DISTRESS SHOWN. BP 90'S SYSTOLIC.
--- NOTE | 2021-01-07 09:01 | NUR ---
PT IS SEEN AT REST IN THE BED, SEDATED AND VENTED. LUNGS CLEAR, DIMINISHED. AGUILAR IN PLACE, RECTAL TUBE IN PLACE. GENERALIZED EDEMA 2+, DECREASED PEDAL PULSES. PT IS NOT REQUIRING SEDATION, DOES NOT MOVE EXCEPT TO ATTEMPT TO RAISE EYEBROWS WHEN ASKED.
--- NOTE | 2021-01-07 11:22 | NUR ---
spoke to patient's alvin garcia at length regarding privacy and decision making on patient's behalf. Also explained Poc for patient at this time. She didn't understand the trach and peg tube, and thought that removing the ET tube meant DNR. She will call me if she delegates a different family member to be blocker and cutter contact lens, but for now she is to be the contact for her . I informed her that she will be the only family member updated, and then she can update whoever she chooses to, but that [facility] will not be able to. She states understanding.
--- NOTE | 2021-01-07 12:30 | NUR ---
PT AT REST IN THE BED, NO DISTRESS. VSS.
--- NOTE | 2021-01-07 17:37 | NUR ---
PT OPENED RIGHT EYE THIS AFTERNOON, SEEMED TO HAVE CURIOSITY ABOUT HIS SURROUNDINGS HE LOOKED AROUND, MOVING HEAD. PT RETURNS TO REST EASILY. NO SEDATIVES ARE BEING ADMINISTERED.
--- NOTE | 2021-01-07 19:24 | NUR ---
PATIENT'S HR 160'S-170'S, LOPRESSOR IV GIVEN, PATIENT IS ALSO AWAKE, EYES ARE OPEN AND DOES LOOK TOWARDS MY FACE WHEN I SPEAK TO HIM, HE DOES NOT FOLLOW DIRECTIONS WHEN ASKED TO WATCH INSPECTOR FINAL MOVEMENT MY HANDS. DOES HAVE SCANT MOVEMENT ON FEET WITH PAINFUL STIMULI. PATIENT DOES MOVE HEAD FROM SIDE TO SIDE IF IN DISCOMFORT. PATIENT WAS REASSURED EACH TIME. PROPOFOL DRIP WAS STARTED PER PROROCOL. NURSE ASSESSMENT PERFORMED, SEE CHARTINF, SEE CHARTINF FOR VENT SETTINGS. MOUTH WAS SUCTIONED, DOES HAVE MODERATE SECRETIONS FROM MOUTH. DOES HAVE MORALES/GREEN THICK PHLEGM FROM ET TUBE WHEN HE COUGHS IT COMES UP TO THE TUBING. OG TUBE INTACT, NO RESIDUAL NOTED. R-FEMORAL TRIPLE LUMEN FLUSHES AND RETURNS BLOOD. RECTAL TUBE INTACT, AGUILAR CATHETER INTACT. REPOSITONED. ALL EXTREMETIES ELEVATED WITH PILLOW.
--- NOTE | 2021-01-07 21:10 | NUR ---
PROPOFOL TITRATED TO 15 MCG/KG/MIN. PT CONTINUES TO OPEN HIS EYES AND IS MOVING HEAD FROM SIDE TO SIDE. MOUTH CARE PROVIDED.
--- NOTE | 2021-01-07 22:29 | NUR ---
PATIENT HR SUSTAINING 157-158 BPM. CALLED RT WADNER AND PLACED ORDER FOR STAT EKG.
--- NOTE | 2021-01-07 22:36 | NUR ---
RT ENZO IN ROOM, HR NOW 105 BPM, SINUS TACHYCARDIA.
--- NOTE | 2021-01-07 23:04 | NUR ---
CALLED AND SPOKE TO DR WRIGHT REGARDING PATIENT HAS BEEN HAVING ELEVATED HR AT BEGINNING OF SHIFT, WAS GIVEN IV LOPRESSOR. HAD ANOTHER EPISODE SUSTAING 157-158 BPM FOR ABOUT 13 MINUTES, EKG WAS TAKEN, SHOWED SINUS TACHCARDIA 105 BPM. NEW ORDERS RECEIVED FOR IV LOPRESSOR WITH PARAMATERS FOR SBP TO BE GREATER THAN 90 AND HR 120 BPM.
[2021-01-08] VITALS (19 sets, daily range): BP systolic 83–112; BP diastolic 50–582
--- NOTE | 2021-01-08 00:49 | NUR ---
RT ENZO IN ROOM, LAVAGED ET TUBE, SPO2 90%.
--- NOTE | 2021-01-08 02:04 | NUR ---
PATIENT WAS WASHED UP. PULLED UP, REPOSITIONED. MOUTH CARE, SUCTIONING PROVIDED. SMALL AMOUNT OF STOOL LEAKING FROM RECTAL TUBE. SPO2 97% NOW. AIR MATRESS INTACT.
--- NOTE | 2021-01-08 05:10 | NUR ---
BLOOD DRAWN FROM R-FEM TRIPLE LUMEN CENTRAL LINE FOR AM LABS.
--- NOTE | 2021-01-08 07:12 | NUR ---
ASSUMED CARE OF PT, POC REVIEWED WITH GURVINDER DODGE. VSS, NO S/S OF DISTRESS NOTED AT THIS TIME.
[2021-01-08 09:15] LABS: HEMATOCRIT 23.1 % (39.0-50.0); HEMOGLOBIN 7.1 g/dl (14.0-18.0); MEAN CELL VOLUME 95.5 fL CALC (80.0-100.0); MEAN CORPUSCULAR HGB 29.3 pG CALC (26.0-32.0); MEAN CORPUSCULAR HGB CONC 30.7 g/dL CAL (32.0-36.0); RED BLOOD COUNT 2.42 mill/uL (4.70-6.10); RED CELL DISTRI WIDTH 14.3 % (11.5-15.5)
[2021-01-08 10:11] LABS: CREATININE 4.9 mg/dL (0.7-1.3); POTASSIUM 4.3 mmol/l (3.5-5.1)
--- NOTE | 2021-01-08 10:30 | NUR ---
NOTIFIED OF RUN OV ST IN THE 160S, PT CONVERTED BACK TO SR 90S BEFORE LOPRESSOR WAS ADMINSTERED. NO S/S OF DISTRESS NOTED
--- NOTE | 2021-01-08 10:36 | NUR ---
RECIEVED A PHONE CALL FROM RISK MANAGMENT STATING MD IS TO UPDATE SISTER IN LAW SITA MORAN AT [phone], INSTEAD OF . IS STILL MAKING ALL DECISIONS AND GIVING ALL CONSENTS.
--- NOTE | 2021-01-08 11:06 | NUR ---
spoke to patient's explaining POC and procedures planned. Reassured her that there is not a DNR. She stated understanding. She also gave permission to make her sister person to notify. Name is Milagros Laird [phone]. Registration to make changes in computer. ICU nurse updated that updates are to be given to Ms. Laird. However Mrs. Bernal will decision maker after ms. laird updates her. Also explained all changes to mr. laird via phone call
--- NOTE | 2021-01-08 12:47 | NUR ---
AT BEDSIDE WITH TEAM, PLACING TRACH AND PEG TUBES. SPOKE WITH SISTER IN LAW PREPROCEDURE PER REQUEST OF .
--- NOTE | 2021-01-08 18:32 | NUR ---
PT VENTIALATING ON TRACH WITH NO S/S OF DISTRESS NOTED, PER MD DO NOT USE PEG TUBE FOR 48 HOURS AFTER PLACEMENT WHICH IS 01/10 AT 1200. VSS
--- NOTE | 2021-01-08 19:15 | NUR ---
eyes open & looks @ this poem writer when spoken to then returns to sleep. vent cont per trach. small amt blood around trach. cardiac cath technologist shows sinus rhythm pacs pvcs. ivf cont to rt fem site. peg tube in place & remains clamped. lam cath in place. urine cloudy yellow. open area conts to buttocks. turned & repositioned. fall & air/contact precautions cont. requires total care for all needs.
--- NOTE | 2021-01-08 22:00 | NUR ---
vent cont assisted by pt. shutdown planner shows sinus rhythm pacs pvcs hr 94.
[2021-01-09] VITALS (18 sets, daily range): BP systolic 89–118; BP diastolic 51–60
--- NOTE | 2021-01-09 00:01 | NUR ---
vent cont assisted by pt. color television console monitor shows sinus tach hr 112.
--- NOTE | 2021-01-09 02:00 | NUR ---
eyes closed. no apparent distress. ivf infusing well.
--- NOTE | 2021-01-09 03:00 | NUR ---
bath & bed change x2 assists. opens eyes when spoken to. .
--- NOTE | 2021-01-09 04:00 | NUR ---
vent cont assisted by pt. patient monitor shows sinus rhythm hr 94.
--- NOTE | 2021-01-09 05:00 | NUR ---
xray here. pcxr obtained.
--- NOTE | 2021-01-09 05:55 | NUR ---
rt here. abg drawn. lab here. blood drawn.
[2021-01-09 06:13] LABS: HEMATOCRIT 22.5 % (39.0-50.0); HEMOGLOBIN 7.2 g/dl (14.0-18.0); MEAN CELL VOLUME 94.1 fL CALC (80.0-100.0); MEAN CORPUSCULAR HGB 30.1 pG CALC (26.0-32.0); NEUT# 8.32 thou/uL (1.82-7.42); RED BLOOD COUNT 2.39 mill/uL (4.70-6.10); RED CELL DISTRI WIDTH 14.1 % (11.5-15.5)
[2021-01-09 06:48] LABS: BILIRUBIN, TOTAL 0.3 mg/dL (0.0-1.4); POTASSIUM 3.7 mmol/l (3.5-5.1); TOTAL PROTEIN 4.5 g/dL (6.3-8.2)
[2021-01-09 06:55] LABS: CREATININE 4.8 mg/dL (0.7-1.3)
[2021-01-09 07:10] LABS: C-REACTIVE PROTEIN 14.5 mg/dL (0-0.9)
--- NOTE | 2021-01-09 07:10 | NUR ---
ASSUMED CARE OF PT AFTER REPORT FROM IESHA BOOTHE. NO MAJOR CHANGES TO CONDITION SINCE BOTTLING ROOM WORKER, NO S/S OF DISTRESS NOTED, WILL CONTINUE TO MONITOR.
--- NOTE | 2021-01-09 08:31 | NUR ---
PLACED PT ON SBT 5/+10 AND WEANED FIO2 FROM 08 TO .7 INITIALLY. PT BARB WELL, ENGINEER FIRST ASSISTANT WEANIED FIO2 S PER PT SPO2 FROM .8 TO .7. PT BARB WELL. ENGINEER FIRST ASSISTANT TO MONITOR.
--- NOTE | 2021-01-09 08:37 | NUR ---
DC SBT PER PT RR >35BPM. PLACED ON PRIOR SETTINGS, CADJUSTED FIO2. PT BARB WELL AT THIS TIME.
--- NOTE | 2021-01-09 10:00 | NUR ---
MEDICATED PER EMAR. PT OPENS EYES TO VOICE, DOES NOT FOLLOW ANY OTHER COMMANDS, NO S/S OF DISTRESS NOTED.
--- NOTE | 2021-01-09 11:35 | NUR ---
NO CHANGES AT THIS TIME.
--- NOTE | 2021-01-09 12:00 | NUR ---
VENT SETTING CHANGES MADE BY RT NOTED
--- NOTE | 2021-01-09 15:40 | NUR ---
S: PELON COSTELLO is a 71 M who presents with pneumonia due to Covid-19. O: W 94 kg, HT 69 in, Scr=4.8, CrCl= 19 ml/min Vancomycin trough = 21 A: Blood culture is pending. Vancomycin trough supratherapeutic. Decrease in dose warranted. P: Patient is on cefepime 1 g IV q12h, Flagyl 500 mg IV q8h and vancomycin 1250 mg IV q36 h. Decrease Vancomycin to 1250 mg IV Q48H. Vancomycin trough is drawn before the dose on 01/11/21@2330. Vancomycin goal trough is between 15-20 mcg/ml. Pharmacy will follow and or advise on antibiotics use as needed.
--- NOTE | 2021-01-09 19:30 | NUR ---
eyes open when spoken to but does not track. vent cont per trach. scant amt bloody drainage on trach sponge. monitoring specialist shows sinus tach hr 102. peg tube in place & remains clamped. d5w infusing @ 50cchr, propofol infusing @ 15mcg/kg/min per rt fem site. lam cath in place. urine cloudy yellow. open area remains on buttocks. bilat scds, air mattress, air/contact precautions cont. turned & repositioned. requires total care for all needs.
--- NOTE | 2021-01-09 22:00 | NUR ---
spoke to dr corbin from [facility]. updated on pts condition.
[2021-01-10] VITALS (10 sets, daily range): BP systolic 106–130; BP diastolic 57–72
--- NOTE | 2021-01-10 00:01 | NUR ---
vent cont assisted by pt. quality assurance monitor body shows sinus rhythm hr 95.
--- NOTE | 2021-01-10 02:00 | NUR ---
vent cont assisted by pt. no distress. ivf infusing well.
--- NOTE | 2021-01-10 03:00 | NUR ---
bath & linen done.
--- NOTE | 2021-01-10 03:30 | NUR ---
SPOKE WITH ICU REQUESTING PATIENT BE GIVEN ESME 1MG/KG UPON TRANSFER. NOTIFIED OF REQUEST AND IN AGREEMENT OF REQUEST. NEW ORDERS GIVEN
--- NOTE | 2021-01-10 05:00 | NUR ---
xray here. pcxr obtained. rt here. abgs drawn.
[2021-01-10 05:43] LABS: HEMATOCRIT 24.8 % (39.0-50.0); HEMOGLOBIN 7.9 g/dl (14.0-18.0); IMMATURE GRANULOCYTES 2.1 % (0.0-5.0); MEAN CELL VOLUME 92.9 fL CALC (80.0-100.0); MEAN CORPUSCULAR HGB 29.6 pG CALC (26.0-32.0); MEAN CORPUSCULAR HGB CONC 31.9 g/dL CAL (32.0-36.0); NEUT# 13.05 thou/uL (1.82-7.42); RED BLOOD COUNT 2.67 mill/uL (4.70-6.10); RED CELL DISTRI WIDTH 14.2 % (11.5-15.5)
[2021-01-10 06:21] LABS: ALBUMIN 2.3 g/dL (3.2-5.0); POTASSIUM 3.7 mmol/l (3.5-5.1); TOTAL PROTEIN 4.9 g/dL (6.3-8.2)
[2021-01-10 06:23] LABS: BILIRUBIN, TOTAL 0.5 mg/dL (0.0-1.4)
[2021-01-10 06:40] LABS: C-REACTIVE PROTEIN 14.1 mg/dL (0-0.9); CREATININE 5.4 mg/dL (0.7-1.3)
--- NOTE | 2021-01-10 08:00 | NUR ---
PATIENT HAS HIS EYES OPEN, TURNED OFF SEDATION FOR AWAKENING TRAIL. PATIENT LOOKS AROUND THE ROOM. DOES LOOK AT YOU BRIEFLY, WHEN ASKED. DOESN'T SEEM IN ANY DISCOMFORT AT THIS TIME. PERRLA 2MM BILAT EYES. DRY MOUTH, ORAL CARE PROVIDED. HE DIDN'T LIKE IT, KEPT TURNING HIS HEAD. VITALS WITHIN NORMAL RANGE. NORMAL HEART SOUNDS. DIMINISHED LUNG SOUNDS. HYPO ACTIVE BOWEL SOUNDS. SOFT NON DISTENDED ABDOMEN. EDEMA IN BILAT ARMS AND FEET. SCDS ARE PLACED. ARMS ARE ELEVATED ON PILLOWS, REPOSITIONED. OPEN AREAS ON BUTTOCKS. STRONG PULSES. SAFETY MEASURES IN PLACE. WILL COTNIUE TO MONITOR.
--- NOTE | 2021-01-10 10:00 | NUR ---
PATIENT WAS NOT TOLERATING AWAKENING TRAIL. HE KEPT TURNING HIS HEAD SIDE TO SIDE AND DISCONNECTING TRACH, VENT ALARMS SET OFF, SEDATION TITRATED BACK UP. SAFETY MEASURES IN PLACE. WILL CONTINUE TO MONITOR.
--- NOTE | 2021-01-10 10:51 | NUR ---
UPDATED DR. ELENA ABOUT HIS CA MEDICATION BEING HELD FOR MORNING DOSE DUE TO PEG TUBE NOT BEING ALLOWED ACCESS FOR 48HOURS, WILL GIVE NOON CALCIUM MEDICATION. DR. ELENA STATED THAT HE UNDERSTANDS AND THAT IS OKAY WITH HIM.
--- NOTE | 2021-01-10 11:45 | NUR ---
PATIENT'S SISTER IN LAW SITA MORAN REQUESTED AN UPDATE ON HIS TRANSPORT, CODE GIVEN, UPDATE GIVEN.
--- NOTE | 2021-01-10 12:31 | NUR ---
FLIGHT NURSES STATED THAT THEY WILL NOT NEED TO GIVE HIM THE PARALYTIC DUE TO HIS PRESSURES. INFORMED ETIENNE DIDIER THAT I WILL NOT NEED HIS HELP FOR THIS PATIENT'S MEDICATION TO BE PUSHED. FLIGHT NURSES STATED IF THEY NEED IT THEY WILL GIVE WHAT THEY HAVE INSTEAD.
--- NOTE | 2021-01-10 12:34 | NUR ---
PATIENT LEFT THE FLOOR WITH TWO FLIGHT NURSES. PATIENT IN STABLE CONDITION.
--- NOTE | 2021-01-10 12:42 | NUR ---
PATIENT'S LA WAS UPDATED HIM ON HIM LEAVING. STATED SHE CAN COME AND CORPORATE TRAVEL EXPERT HIS PERSONAL BELONGINGS, SHE STATED SHE MAY NOT BE ABLE TO BUT SHE CAN SEND HER GRANDDAUGHTER TO PICK IT UP IF NEED BE.
--- NOTE | 2021-01-10 13:03 | NUR ---
PATIENT REPORT GIVEN OFF TO PING HOLLINS IN [facility] ICU.
--- NOTE | 2021-01-10 13:59 | NUR ---
PATIENT'S GRAND DAUGHTER CAME AND PICKED UP PERSONAL BELONGINGS. SIGNED OFF PAPER WORK FOR [employer]
== END 2021-01-10 12:34 | disposition short-term general hospital (02) | DRG 4 ==
LOC: ED 06:58 → ED-I 08:35 → ED 09:50 → ICU 09:51
PROVIDERS: Family Medicine; Hospitalist; Internal Medicine; Internal Medicine Nephrology; Nurse Practitioner; ADMIT Internal Medicine; ATTEND Internal Medicine
PROC: XW033E5 Introduction of Remdesivir Anti-infective into Peripheral Vein, Percutaneous Approach, New Technology Group 5 (ICD-10-PCS; principal; 2020-12-16)
PROC: 06HY33Z Insertion of Infusion Device into Lower Vein, Percutaneous Approach (ICD-10-PCS; 2020-12-18)
PROC: 5A09557 Assistance with Respiratory Ventilation, Greater than 96 Consecutive Hours, Continuous Positive Airway Pressure (ICD-10-PCS; 2020-12-19)
PROC: 5A1955Z Respiratory Ventilation, Greater than 96 Consecutive Hours (ICD-10-PCS; 2020-12-25)
PROC: 0BH17EZ Insertion of Endotracheal Airway into Trachea, Via Natural or Artificial Opening (ICD-10-PCS; 2020-12-25)
PROC: 30233N1 Transfusion of Nonautologous Red Blood Cells into Peripheral Vein, Percutaneous Approach (ICD-10-PCS; 2021-01-02)
PROC: 0B113F4 Bypass Trachea to Cutaneous with Tracheostomy Device, Percutaneous Approach (ICD-10-PCS; 2021-01-08)
PROC: 0DH63UZ Insertion of Feeding Device into Stomach, Percutaneous Approach (ICD-10-PCS; 2021-01-08)
DX: U07.1 COVID-19 (principal); J12.82 Pneumonia due to coronavirus disease 2019; J96.01 Acute respiratory failure with hypoxia; G93.41 Metabolic encephalopathy; N17.0 Acute kidney failure with tubular necrosis; E87.2 Acidosis; E87.0 Hyperosmolality and hypernatremia; I10 Essential (primary) hypertension; I25.10 Atherosclerotic heart disease of native coronary artery without angina pectoris; D69.59 Other secondary thrombocytopenia; T45.515A Adverse effect of anticoagulants, initial encounter; D72.810 Lymphocytopenia; I48.91 Unspecified atrial fibrillation; E86.9 Volume depletion, unspecified; I95.9 Hypotension, unspecified; D63.8 Anemia in other chronic diseases classified elsewhere; E86.0 Dehydration; E87.5 Hyperkalemia; E83.39 Other disorders of phosphorus metabolism; I25.2 Old myocardial infarction; Z79.02 Long term (current) use of antithrombotics/antiplatelets; Z87.442 Personal history of urinary calculi; Z86.73 Personal history of transient ischemic attack (TIA), and cerebral infarction without residual deficits; Z95.5 Presence of coronary angioplasty implant and graft; Z78.1 Physical restraint status
CPT/HCPCS: J0692; J1650; J2060; J2997; J3370; P9016; Q9967; S0164; S0166